=== PATIENT | male | born 1965 | race African-American/Black ===

== ENCOUNTER 2017-06-23 12:29 | Inpatient (IN) | payer BC, OTHER ==
[~2017-06-23] VITALS: Ht 182.9 cm; Wt 93.1 kg
[~2017-06-23 12:29] MED LIST: IBUP-238 PO; LORTA5 PO; Z.0.NO CURRENT MEDS
[2017-06-23] MEDS ORDERED: FURO1TAB61 PO (12:59)
[2017-06-23] MEDS ORDERED: ALDA100T PO (12:59)
[2017-06-23] MEDS ORDERED: ASPI-516 CHEW (12:59)
[2017-06-23] MEDS ORDERED: NIFE1TAB86 PO (12:59)
[2017-06-23 13:00] VITALS: BP 145/106; PULSE 111; RESP 16; TEMP 98.5; O2SAT 97
--- NOTE | 2017-06-23 13:13 | PD ---
HPI Chief Complaint: dizziness Time Seen by Provider: 13:06 Travel History International Travel<30 days: No Contact w/Intl Traveler<30days: No Traveled to known affect area: No History of Present Illness HPI 51yo M with PMH of CHF here with c/o dizziness for the last few days. Pt was seen by his physician 6 days ago and had aldactone 100mg BID added to his 80mg of lasix BID because he said pt had anasarca. Pt said he has been urinating a lot and has been feeling lightheaded for last few days. Today he was feeling dizzy and went to open the refrigerator but fell and hit his head. He said he remembers everything and denies any syncope or LOC. Denies any headache, chest pain, sob, n/v, abdominal pain, focal weakness or numbness. Pt said his edema has not improved and his legs are so swollen that it is difficult to walk. Said breathing has improved. PFSH Past Medical History Congestive Heart Failure: Yes Hypertension: Yes Medical other: Yes (CHRONIC KIDNEY DISEASE) Tetanus Vaccination: Unknown Influenza Vaccination: No Past Surgical History Other Surgery: Yes (HERNIA SURGERY) Social History Alcohol Use: Yes (OCCASIONAL) Tobacco Use: No Substance Use: No Allergies-Medications (Allergen,Severity, Reaction): Coded Allergies: No Known Allergies (Unverified Allergy, Unknown, 06/23/17) Reported Meds & Prescriptions Reported Meds & Active Scripts Active Reported Telmisartan 80 Mg Tab 80 Mg PO DAILY Aspirin 81 Mg Chew 81 Mg CHEW DAILY Aldactone (Spironolactone) 100 Mg Tab 100 Mg PO BIDPC Lasix (Furosemide) 80 Mg Tab 80 Mg PO BID Review of Systems Except as stated in HPI: all other systems reviewed are Neg Physical Exam Narrative GENERAL: 51yo M SKIN: Focused skin assessment warm/dry. HEAD: Atraumatic. Normocephalic. EYES: Pupils equal and round. No scleral icterus. No injection or drainage. ENT: No nasal bleeding or discharge. Mucous membranes pink and moist. NECK: Trachea midline. No JVD. CARDIOVASCULAR: Regular rate and rhythm. No murmur appreciated. RESPIRATORY: No accessory muscle use. Bibasilar crackles. GASTROINTESTINAL: Abdomen soft, non-tender. No rebound tenderness or guarding. MUSCULOSKELETAL: No obvious deformities. No clubbing. No cyanosis. Marked edema bilateral lower extremity up to abdomen. NEUROLOGICAL: Awake and alert. No obvious cranial nerve deficits. Motor grossly within normal limits. Normal speech. PSYCHIATRIC: Appropriate mood and affect; insight and judgment normal. Data Data Last Documented VS Vital Signs Date Time Temp Pulse Resp B/P (MAP) Pulse Ox O2 Delivery O2 Flow Rate FiO2 06/23/17 13:00 98.5 111 16 145/106 (119) 97 Orders Orders Electrocardiogram (06/23/17 ) Complete Blood Count With Diff (06/23/17 13:06) Basic Metabolic Panel (Bmp) (06/23/17 13:06) Magnesium (Mg) (06/23/17 13:06) B-Type Natriuretic Peptide (06/23/17 13:06) Blood Glucose (06/23/17 15:37) Potassium Chloride (Kcl) (06/23/17 15:45) Admit Order (Ed Use Only) (06/23/17 15:56) Labs Laboratory Tests Test 06/23/17 13:55 White Blood Count 5.8 TH/MM3 Red Blood Count 4.13 MIL/MM3 Hemoglobin 13.0 GM/DL Hematocrit 38.9 % Mean Corpuscular Volume 94.1 FL Mean Corpuscular Hemoglobin 31.4 PG Mean Corpuscular Hemoglobin Concent 33.4 % Red Cell Distribution Width 17.6 % Platelet Count 243 TH/MM3 Mean Platelet Volume 8.6 FL Neutrophils (%) (Auto) 72.2 % Lymphocytes (%) (Auto) 12.7 % Monocytes (%) (Auto) 11.8 % Eosinophils (%) (Auto) 2.3 % Basophils (%) (Auto) 1.0 % Neutrophils # (Auto) 4.2 TH/MM3 Lymphocytes # (Auto) 0.7 TH/MM3 Monocytes # (Auto) 0.7 TH/MM3 Eosinophils # (Auto) 0.1 TH/MM3 Basophils # (Auto) 0.1 TH/MM3 CBC Comment DIFF FINAL Differential Comment Blood Urea Nitrogen 27 MG/DL Creatinine 2.03 MG/DL Random Glucose 66 MG/DL Calcium Level 8.2 MG/DL Magnesium Level 1.7 MG/DL Sodium Level 143 MEQ/L Potassium Level 3.3 MEQ/L Chloride Level 107 MEQ/L Carbon Dioxide Level 23.4 MEQ/L Anion Gap 13 MEQ/L Estimat Glomerular Filtration Rate 42 ML/MIN Total Bilirubin 1.2 MG/DL Direct Bilirubin 0.6 MG/DL Indirect Bilirubin 0.6 MG/DL Aspartate Amino Transf (AST/SGOT) 28 U/L Alanine Aminotransferase (ALT/SGPT) 23 U/L Alkaline Phosphatase 144 U/L B-Type Natriuretic Peptide 2160 PG/ML Total Protein 7.5 GM/DL Albumin 2.6 GM/DL Thyroid Stimulating Hormone 3rd Gen 3.860 uIU/ML MDM Medical Decision Making Medical Screen Exam Complete: Yes Emergency Medical Condition: Yes Interpretation(s) EKG: Sinus tachycardia at 104bpm. Normal axis. TWI V5, V6. Labs reviewed, no leukocytosis. H/H 13.0/38.9. K 3.3, replaced orally. BUN/creatinine elevated at 27/2.03, no prior to compare. Glucose 66. Will recheck blood glucose. Differential Diagnosis hypoglycemia vs. dehydration vs. electrolyte abnormality vs. fluid overload Narrative Course 51yo M with anasarca recently place on aldactone in addition to his lasix by Dr. Cline from [facility]. Said his edema is getting worst and his legs are so tense that he has trouble walking. Pt felt dizzy and fell today. Glucose was low in the 50s when EVAC arrived and was given oral glucose. Repeat glucose here is still 54. Pt given juice. Pt has normal mental status and no focal neurologic deficits. He does have tense edema in bilateral lower extremities. Pt said he is no longer dizzy but lives by himself and has difficulty walking because of how swollen his legs are. Repeat glucose is still low so given food. Discussed with Dr. Garsia who accepted him to his service. Diagnosis Primary Impression: Anasarca Admitting Information Admitting Physician Requests: Dorothy Bartholomew DO Jun 23, 2017 13:13
[2017-06-23 14:06] LABS: AUTOMATED NEUTROPHIL # 4.2 TH/MM3 (1.8-7.7); BASOPHIL # 0.1 TH/MM3 (0-0.2); EOSINOPHIL # 0.1 TH/MM3 (0-0.4); EOSINOPHIL % 2.3 % (0.0-4.0); HEMATOCRIT 38.9 % (39.0-51.0); LYMPH % 12.7 % (9.0-44.0); LYMPHOCYTE # 0.7 TH/MM3 (1.0-4.8); MEAN CELL VOLUME 94.1 FL (80.0-100.0); MEAN CORPUSCULAR HEMOGLOBIN 31.4 PG (27.0-34.0); MEAN CORPUSCULAR HGB CONC 33.4 % (32.0-36.0); MEAN PLATELET VOLUME 8.6 FL (7.0-11.0); MONO % 11.8 % (0.0-8.0); MONOCYTE # 0.7 TH/MM3 (0-0.9); NEUT % 72.2 % (16.0-70.0); PLATELET COUNT 243 TH/MM3 (150-450); RED BLOOD COUNT 4.13 MIL/MM3 (4.50-5.90); RED CELL DISTRIBUTION WIDTH 17.6 % (11.6-17.2); WHITE BLOOD COUNT 5.8 TH/MM3 (4.0-11.0)
[2017-06-23 14:27] LABS: BICARBONATE 23.4 MEQ/L (21.0-32.0); CALCIUM 8.2 MG/DL (8.5-10.1); CREATININE 2.03 MG/DL (0.60-1.30); MAGNESIUM 1.7 MG/DL (1.5-2.5)
[2017-06-23] MEDS ORDERED: POTASSIUM CHLORIDE 20 MEQ CONTROLLED RELEASE TAB PO ONE ×2 (15:45→16:45)
[2017-06-23] MEDS ORDERED: TELM1TAB2 PO (16:35)
--- NOTE | 2017-06-23 16:51 | HHI.HP ---
HPI Service CP Hospitalists Primary Care Physician Bart Admission Diagnosis CHF Chief Complaint: SWELLING Travel History International Travel<30 Days: No Contact w/Intl Traveler <30 Da: No Traveled to Known Affected Are: No History of Present Illness Patient is 51 yo with no pmh who presents to his pcp in February with sudden abdomen and lower ext swelling. Pt says he was around 280pounds...lost weight to around 230 intentionally...then suddenly became swollen and gained weight back up to 280pounds. Over past 4-5 months has seen his pcp, cardiology, and urgent care. His diuretics have been titrated up, on arb, but cardiac echo and liver u/s were pending. His outpt records indicate that his cr was around 3 in February and most recent around 2. He is not getting any better and presents here. Pt says he was taking some otc supplements during his weight loss period. Denies any cp or palpitation. 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 No needle sticks. Review of Systems Other ABDOMEN AND LEG SWELLING SINCE FEBRUARY. Past Family Social History Past Medical History leg/abdomen swelling since February hernia surgery as a child sinus tach Reported Medications Reported Meds & Active Scripts Active Reported Telmisartan 80 Mg Tab 80 Mg PO DAILY Aspirin 81 Mg Chew 81 Mg CHEW DAILY Aldactone (Spironolactone) 100 Mg Tab 100 Mg PO BIDPC Lasix (Furosemide) 80 Mg Tab 80 Mg PO BID Allergies: Coded Allergies: No Known Allergies (Unverified Adverse Reaction, Unknown, 06/23/17) Family History nc Social History 4 beers 3x week. 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 bs. nt. flank dullness percussion. ext anasarca lower ext/thighs/hips/abdomen sparing the arms jvd bilaterally. superficial erosion left lower and right lower ext without drainage or cellulitis. scrotal edema Vital Signs Date Time Temp Pulse Resp B/P (MAP) Pulse Ox O2 Delivery O2 Flow Rate FiO2 06/23/17 13:00 98.5 111 16 145/106 (119) 97 Laboratory Laboratory Tests Test 06/23/17 13:55 White Blood Count 5.8 Red Blood Count 4.13 Hemoglobin 13.0 Hematocrit 38.9 Mean Corpuscular Volume 94.1 Mean Corpuscular Hemoglobin 31.4 Mean Corpuscular Hemoglobin Concent 33.4 Red Cell Distribution Width 17.6 Platelet Count 243 Mean Platelet Volume 8.6 Neutrophils (%) (Auto) 72.2 Lymphocytes (%) (Auto) 12.7 Monocytes (%) (Auto) 11.8 Eosinophils (%) (Auto) 2.3 Basophils (%) (Auto) 1.0 Neutrophils # (Auto) 4.2 Lymphocytes # (Auto) 0.7 Monocytes # (Auto) 0.7 Eosinophils # (Auto) 0.1 Basophils # (Auto) 0.1 CBC Comment DIFF FINAL Differential Comment Blood Urea Nitrogen 27 Creatinine 2.03 Random Glucose 66 Calcium Level 8.2 Magnesium Level 1.7 Sodium Level 143 Potassium Level 3.3 Chloride Level 107 Carbon Dioxide Level 23.4 Anion Gap 13 Estimat Glomerular Filtration Rate 42 Result Diagram: 06/23/17 1355 06/23/17 1355 Caprini VTE Risk Assessment Caprini VTE Risk Assessment: Mod/High Risk (score >= 2) Caprini Risk Assessment Model Point Value = 1 Point Value = 2 Point Value = 3 Point Value = 5 Age 41-60 Minor surgery BMI > 25 kg/m2 Swollen legs Varicose veins or History of unexplained or recurrent spontaneous Oral contraceptives or hormone replacement Sepsis (< 1 month) Serious lung disease, including pneumonia (< 1 month) Abnormal pulmonary function Acute myocardial infarction Congestive heart failure (< 1 month) History of inflammatory bowel disease Medical patient at bed rest Age 61-74 Arthroscopic surgery Major open surgery (> 45 min) Laparoscopic surgery (> 45 min) Malignancy Confined to bed (> 72 hours) Immobilizing plaster cast Central venous access Age >= 75 History of VTE Family history of VTE Factor V Leiden Prothrombin [id number] Lupus anticoagulant Anticardiolipin antibodies Elevated serum homocysteine Heparin-induced thrombocytopenia Other congenital or acquired thrombophilia Stroke (< 1 month) Elective arthroplasty Hip, pelvis, or leg fracture Acute spinal cord injury (< 1 month) Prophylaxis Regimen Total Risk Factor Score Risk Level Prophylaxis Regimen 0-1 Low Early ambulation 2 Moderate Order ONE of the following: *Sequential Compression Device (SCD) *Heparin 5000 units SQ BID 3-4 Higher Order ONE of the following medications: *Heparin 5000 units SQ TID *Enoxaparin/Lovenox 40 mg SQ daily (WT < 150 kg, CrCl > 30 mL/min) *Enoxaparin/Lovenox 30 mg SQ daily (WT < 150 kg, CrCl > 10-29 mL/min) *Enoxaparin/Lovenox 30 mg SQ BID (WT < 150 kg, CrCl > 30 mL/min) AND/OR *Sequential Compression Device (SCD) 5 or more Highest Order ONE of the following medications: *Heparin 5000 units SQ TID (Preferred with Epidurals) *Enoxaparin/Lovenox 40 mg SQ daily (WT < 150 kg, CrCl > 30 mL/min) *Enoxaparin/Lovenox 30 mg SQ daily (WT < 150 kg, CrCl > 10-29 mL/min) *Enoxaparin/Lovenox 30 mg SQ BID (WT < 150 kg, CrCl > 30 mL/min) AND *Sequential Compression Device (SCD) Assessment and Plan Problem List: (1) Anasarca ICD Codes: R60.1 - Generalized edema Status: Acute Plan: 1. Patient is 51 yo with no pmh who presents to his pcp in February with sudden abdomen and lower ext swelling. Pt says he was around 280pounds...lost weight to around 230 intentionally...then suddenly became swollen and gained weight back up to 280pounds. Over past 4-5 months has seen his pcp, cardiology, and urgent care. His diuretics have been titrated up, on arb, but cardiac echo and liver u/ s were pending. His outpt records indicate that his cr was around 3 in February and most recent around 2. He is not getting any better and presents here. anasarca. possibilities could include paul/nephrotic syndrome, liver cirrhosis, or new onset chf. pt also noted to be hypoglycemic on admission. sinus tach hx 1. 2d echo, telemetry 2. cont aldactone. add iv bumex and iv albumen 3. renal and liver u/s 4. check LFT, TSH, u/a, urine prot/cr ratio.....if concern for cirrhosis after initial w/up then will add additional studies. 5. weigh now and daily 6. fluid restrict 7. PT consult 8 dvt prophylaxis. Physician Certification 2 Midnight Certification Type: Admission for Inpatient Services Order for Inpatient Services 3The services are ordered in accordance with Medicare regulations or non- Medicare payer requirements, as applicable. In the case of services not specified as inpatient-only, they are appropriately provided as inpatient services in accordance with the 2-midnight benchmark. Estimated LOS (days): 3 3 days is the estimated time the patient will need to remain in the hospital, assuming treatment plan goals are met and no additional complications. Post-Hospital Plan: Home Danilo Garsia MD Jun 23, 2017 16:51
[2017-06-23 16:52] LABS: ALBUMIN 2.6 GM/DL (3.4-5.0); DIRECT BILIRUBIN ADULT 0.6 MG/DL (0.0-0.2)
[2017-06-23 16:54] LABS: INDIRECT BILIRUBIN 0.6 MG/DL (0.0-0.8); TOTAL BILIRUBIN ADULT 1.2 MG/DL (0.2-1.0); TOTAL PROTEIN 7.5 GM/DL (6.4-8.2)
[2017-06-23 17:24] VITALS: BP 146/97; PULSE 103; RESP 16; O2SAT 96
[2017-06-23 17:41] LABS: BILIRUBIN, URINE NEG (NEG); BLOOD, URINE NEG (NEG); GLUCOSE,URINE NEG (NEG); HYALINE CAST, URINE 1 /lpf (RARE); KETONE, URINE NEG (NEG); NITRITE,URINE NEG (NEG); PH, URINE 5.5 (5.0-8.5); SQUAMOUS EPITHELIAL CELL URINE <1 /hpf (0-5); URINE COLOR LIGHT-YELLOW (YELLW/STRAW); URINE LEUKOCYTE ESTERASE TRACE (NEG)
--- NOTE | 2017-06-23 17:46 | RADRPT ---
EXAM DATE/TIME: 06/23/2017 16:54 [facility] COMPARISON: No previous studies available for comparison. INDICATIONS : Edema. MEDICAL HISTORY : Chronic kidney disease. CHF. HTN. SURGICAL HISTORY : Hernia surgery. ENCOUNTER: Initial ACUITY: 1 day PAIN SCORE: 5/10 LOCATION: Bilateral upper quadrant MEASUREMENTS: LIVER: 17.6 cm length COMMON DUCT: 4 mm RIGHT KIDNEY: 9.2 x 4.3 x 4.3 cm SPLEEN: 9.4 x 3.8 cm length FINDINGS: LIVER: Small somewhat echogenic without focal lesion or ductal dilatation. Moderate ascites COMMON DUCT: No intraluminal mass or stone visualized. GALLBLADDER: Contains no stones, demonstrates no wall thickening or pericholecystic fluid. PANCREAS: Not visualized RIGHT KIDNEY: No hydronephrosis, stone or mass. SPLEEN: No focal lesion. CONCLUSION: Moderate ascites. Liver small and echogenic Pancreas not visualized Jose L Valdez MD FACR on June 23, 2017 at 17:43 Board Certified Radiologist. This report was verified electronically.
--- NOTE | 2017-06-23 17:59 | RADRPT ---
EXAM DATE/TIME: 06/23/2017 17:11 [facility] COMPARISON: No previous studies available for comparison. INDICATIONS : Increased BUN/Creatnine. MEDICAL HISTORY : Chronic kidney disease. CHF. HTN. SURGICAL HISTORY : Hernia surgery. ENCOUNTER: Initial ACUITY: 1 day PAIN SCORE: 5/10 LOCATION: Right flank MEASUREMENTS: RIGHT KIDNEY: 9.2 x 4.3 x 4.3 cm LEFT KIDNEY: 8.5 x 4.2 x 4.2 cm FINDINGS: RIGHT KIDNEY: The kidney is small and echogenic. No hydronephrosis or mass. LEFT KIDNEY: The kidney is small and echogenic. No hydronephrosis or mass. BLADDER: Within normal limits given the degree of distension. Ascitic fluid noted. CONCLUSION: 1. Sonographic findings suggesting underlying medical renal disease. No obstruction. 2. Ascites. Bert Franklin Jr., MD on June 23, 2017 at 17:55 Board Certified Radiologist. This report was verified electronically.
[2017-06-23] MEDS ORDERED: DEXTROSE 50% IN WATER 50 ML SYRINGE ONE (18:08)
[2017-06-23] MEDS: ALBUMIN 25% INJ 100 ML IV SCH (18:18)
[2017-06-23] MEDS: SPIRONOLACTONE 100 MG TAB PO SCH (18:18)
[2017-06-23 18:19] VITALS: BP 136/92; PULSE 103; RESP 14; O2SAT 96
[2017-06-23] MEDS ORDERED: DEXTROSE 50% IN WATER 50 ML SYRINGE IV ONE (18:45)
[2017-06-23 20:00] VITALS: BP 135/98; PULSE 101; RESP 20; TEMP 98.1; O2SAT 97
[2017-06-23] MEDS: FUROSEMIDE 40 MG/4 ML VIAL IV PUSH SCH (21:05)
[2017-06-24] VITALS: BP 111/77; PULSE 99; RESP 18; TEMP 97.5; O2SAT 97
[2017-06-24 04:00] VITALS: BP 135/90; PULSE 101; RESP 18; TEMP 98.1; O2SAT 98
[2017-06-24 07:49] LABS: AUTOMATED NEUTROPHIL # 5.7 TH/MM3 (1.8-7.7); BASOPHIL # 0.1 TH/MM3 (0-0.2); BASOPHIL % 0.7 % (0.0-2.0); EOSINOPHIL # 0.4 TH/MM3 (0-0.4); EOSINOPHIL % 4.6 % (0.0-4.0); HEMATOCRIT 36.4 % (39.0-51.0); HEMOGLOBIN 12.2 GM/DL (13.0-17.0); LYMPHOCYTE # 0.9 TH/MM3 (1.0-4.8); MEAN CELL VOLUME 94.9 FL (80.0-100.0); MEAN CORPUSCULAR HGB CONC 33.7 % (32.0-36.0); MEAN PLATELET VOLUME 8.1 FL (7.0-11.0); MONO % 13.4 % (0.0-8.0); MONOCYTE # 1.1 TH/MM3 (0-0.9); NEUT % 70.3 % (16.0-70.0); PLATELET COUNT 227 TH/MM3 (150-450); RED BLOOD COUNT 3.83 MIL/MM3 (4.50-5.90); RED CELL DISTRIBUTION WIDTH 17.3 % (11.6-17.2); WHITE BLOOD COUNT 8.2 TH/MM3 (4.0-11.0)
[2017-06-24 08:00] VITALS: BP 134/91; PULSE 98; RESP 18; TEMP 98.2; O2SAT 100
[2017-06-24 08:01] LABS: INTERNATIONAL NORMALIZED RATIO 1.3 RATIO; PROTHROMBIN TIME - PATIENT 13.3 SEC (9.8-11.6)
[2017-06-24 08:14] LABS: BICARBONATE 24.9 MEQ/L (21.0-32.0); CALCIUM 8.1 MG/DL (8.5-10.1); CREATININE 1.89 MG/DL (0.60-1.30)
[2017-06-24] MEDS: POTASSIUM CHLORIDE 20 MEQ CONTROLLED RELEASE TAB PO SCH ×5 (09:54→22:35)
[2017-06-24] MEDS: LOSARTAN 50 MG TAB PO SCH (09:55)
[2017-06-24] MEDS: ASPIRIN 81 MG CHEW TAB CHEW SCH (09:56)
[2017-06-24] MEDS: HEPARIN SODIUM - SQ 10,000 UNITS/ML VIAL SQ SCH ×2 (09:56→21:00)
[2017-06-24] MEDS: SPIRONOLACTONE 100 MG TAB PO SCH ×2 (10:15→17:51)
[2017-06-24] MEDS: ALBUMIN 25% INJ 100 ML IV SCH ×2 (10:15→18:23)
--- NOTE | 2017-06-24 10:54 | HHI.PR ---
Subjective Remarks breathing ok feels little less swollen Objective Vitals heart reg lung cta abd ascites/nt/bs ext anasarca from feet to thighs millan. yellow urine Vital Signs Date Time Temp Pulse Resp B/P (MAP) Pulse Ox O2 Delivery O2 Flow Rate FiO2 06/24/17 08:00 98.2 98 18 134/91 (105) 100 06/24/17 04:00 98.1 101 18 135/90 (105) 98 06/24/17 00:00 97.5 99 18 111/77 (88) 97 06/23/17 20:00 98.1 101 20 135/98 (110) 97 06/23/17 19:31 06/23/17 18:19 103 14 136/92 (107) 96 Room Air 06/23/17 17:24 103 16 146/97 (113) 96 Room Air 06/23/17 13:00 98.5 111 16 145/106 (119) 97 Result Diagram: 06/24/17 0713 06/24/17 0713 A/P Problem List: (1) Anasarca ICD Codes: R60.1 - Generalized edema Status: Acute Plan: 1. Patient is 51 yo with no pmh who presents to his pcp in February with sudden abdomen and lower ext swelling. Pt says he was around 280pounds...lost weight to around 230 intentionally...then suddenly became swollen and gained weight back up to 280pounds. Over past 4-5 months has seen his pcp, cardiology, and urgent care. His diuretics have been titrated up, on arb, but cardiac echo and liver u/ s were pending. His outpt records indicate that his cr was around 3 in February and most recent around 2. He is not getting any better and presents here. anasarca. possibilities could include paul/nephrotic syndrome, liver cirrhosis, or new onset chf. ..liver u/s 06/23 small echogenic liver no mass ..renal u/s 06/23.no obstruction ..3L diuresis overnight. pt also noted to be hypoglycemic on admission. sinus tach hx ckd 3 1. 2d echo, telemetry 2. cont aldactone. add iv lasix and iv albumen. replace k aggresssively and recheck today 3. add on hepatitis panel 5. weigh now and daily 6. fluid restrict 7. PT consult 8 dvt prophylaxis. Sun,Danilo L MD Jun 24, 2017 10:54
[2017-06-24 12:00] VITALS: BP 138/102; PULSE 115; RESP 18; TEMP 98.6; O2SAT 100
[2017-06-24] MEDS: FUROSEMIDE 40 MG/4 ML VIAL IV PUSH SCH ×2 (14:24→18:22)
[2017-06-24 16:00] VITALS: BP 134/86; PULSE 70; RESP 18; TEMP 98.3; O2SAT 99
--- NOTE | 2017-06-24 19:09 | EKG ---
Date Performed: 06/23/2017 Time Performed: 14:29:01 PTAGE: 51 years EKG: SINUS TACHYCARDIA WITH OCCASIONAL SUPRAVENTRICULAR PREMATURE COMPLEXES NONSPECIFIC T-WAVE A BNORMALITY ABNORMAL RHYTHM ECG NO PREVIOUS TRACING DOCTOR: Clemente Rainey Interpretating Date/Time 06/24/2017 19:07:35
[2017-06-24 20:30] VITALS: BP 128/90; PULSE 114; RESP 17; TEMP 98.8; O2SAT 98
[2017-06-25] VITALS (10 sets, daily range): BP systolic 111–130; BP diastolic 70–88; PULSE 100–113; RESP 17–19; TEMP 97.8–98.7; O2SAT 97–100
[2017-06-25] MEDS ORDERED: ACETAMINOPHEN 325 MG TAB PO PRN (02:15)
[2017-06-25 10:12] LABS: CALCIUM 8.5 MG/DL (8.5-10.1); CREATININE 1.97 MG/DL (0.60-1.30); MAGNESIUM 1.6 MG/DL (1.5-2.5)
[2017-06-25] MEDS: SPIRONOLACTONE 100 MG TAB PO SCH ×2 (10:32→17:31)
[2017-06-25] MEDS: FUROSEMIDE 40 MG/4 ML VIAL IV PUSH SCH ×2 (10:32→17:31)
[2017-06-25] MEDS: POTASSIUM CHLORIDE 20 MEQ CONTROLLED RELEASE TAB PO SCH (10:32)
[2017-06-25] MEDS: ASPIRIN 81 MG CHEW TAB CHEW SCH (10:32)
[2017-06-25] MEDS: LOSARTAN 50 MG TAB PO SCH (10:33)
[2017-06-25] MEDS: HEPARIN SODIUM - SQ 10,000 UNITS/ML VIAL SQ SCH ×2 (10:33→20:03)
[2017-06-25] MEDS: ALBUMIN 25% INJ 100 ML IV SCH ×2 (10:36→17:31)
--- NOTE | 2017-06-25 12:03 | HHI.PR ---
Subjective Remarks feels swelling in coming down c/o left foot/ankle pain since prior to admission. Objective Vitals heart reg lung cta abd softer. bs. nt/ascites ext lower ext pitting edema improving millan. yellow urine Vital Signs Date Time Temp Pulse Resp B/P (MAP) Pulse Ox O2 Delivery O2 Flow Rate FiO2 06/25/17 08:00 98.4 112 18 111/70 (84) 98 06/25/17 04:00 113 06/25/17 04:00 98.0 100 19 120/80 (93) 98 06/25/17 00:20 98.0 110 18 123/88 (100) 97 06/24/17 20:30 98.8 114 17 128/90 (103) 98 06/24/17 16:00 98.3 70 18 134/86 (102) 99 06/24/17 12:00 98.6 115 18 138/102 (114) 100 Result Diagram: 06/24/17 0713 06/25/17 0855 A/P Problem List: (1) Anasarca ICD Codes: R60.1 - Generalized edema Status: Acute Plan: 1. Patient is 51 yo with no pmh who presents to his pcp in February with sudden abdomen and lower ext swelling. Pt says he was around 280pounds...lost weight to around 230 intentionally...then suddenly became swollen and gained weight back up to 280pounds. Over past 4-5 months has seen his pcp, cardiology, and urgent care. His diuretics have been titrated up, on arb, but cardiac echo and liver u/ s were pending. His outpt records indicate that his cr was around 3 in February and most recent around 2. He is not getting any better and presents here. anasarca. possibilities could include paul/nephrotic syndrome(spot prot/cr ratio not nephrotic range), liver cirrhosis, or new onset chf. ..liver u/s 06/23 small echogenic liver no mass. ascites noted ..renal u/s 06/23.no obstruction. medical renal dz ..continues to diurese well pt also noted to be hypoglycemic on admission. sinus tach hx ckd 3 1. 2d echo pending, telemetry 2. cont aldactone. iv lasix and iv albumen. replace k aggresssively 3. weigh daily. fluid restrict 4. u/s paracentesis with analysis. check SAAG. 5. consult renal for renal failure 6. xray left foot 7 PT consult 8 dvt prophylaxis. Danilo Garsia MD Jun 25, 2017 12:03
--- NOTE | 2017-06-25 12:46 | RADRPT ---
EXAM DATE/TIME: 06/25/2017 12:02 [facility] COMPARISON: No previous studies available for comparison. INDICATIONS : Pain in left foot; 1-5 head of metatarsals. MEDICAL HISTORY : None. SURGICAL HISTORY : None. ENCOUNTER: Initial ACUITY: 2 weeks PAIN SCORE: 7/10 LOCATION: Left Foot. FINDINGS: No fracture is seen. There is some hypertrophic change at the medial first metatarsal head. There is cystic change at the medial aspect of the first interphalangeal joint. There some hypertrophic change between an os naviculare. and the posterior medial aspect of the navicular bone. There are calcaneal spurs at the Achilles and plantar aponeurosis attachment sites. There is soft tissue swelling is see n at the dorsum of the foot. CONCLUSION: Chronic bony changes as described above. Jeremy Fry MD on June 25, 2017 at 12:40 Board Certified Radiologist. This report was verified electronically.
--- NOTE | 2017-06-25 15:21 | PD.CONS ---
HPI Service Nephrology Consult Requested By Dr. Martínez Reason for Consult Acute renal failure Primary Care Physician Janneth Ruiz MD History of Present Illness Patient is a 51-year-old -[place] male with history of alcohol use, he has been swelling up since February increasing edema of the legs and abdominal cavity, he came in now with these complaints and I was consulted to rule out nephrotic syndrome has urinalysis though do not show massive protein loss, protein to creatinine ratio is 1. His creatinine has elevated 1.8-2 range. He has no knowledge of kidney dysfunction in the past. Review of Systems Constitutional: COMPLAINS OF: Fatigue Respiratory: COMPLAINS OF: Shortness of breath Cardiovascular: COMPLAINS OF: Lower Extremity Edema Gastrointestinal: COMPLAINS OF: Abdominal pain Neurologic: COMPLAINS OF: Abnormal gait Psychiatric: COMPLAINS OF: Anxiety Past Family Social History Allergies: Coded Allergies: No Known Allergies (Unverified Allergy, Unknown, 06/23/17) Past Medical History Hypertension Peripheral edema Past Surgical History Hernia repair Reported Medications Reported Meds & Active Scripts Active Reported Telmisartan 80 Mg Tab 80 Mg PO DAILY Aspirin 81 Mg Chew 81 Mg CHEW DAILY Aldactone (Spironolactone) 100 Mg Tab 100 Mg PO BIDPC Lasix (Furosemide) 80 Mg Tab 80 Mg PO BID Active Ordered Medications Current Medications Medications (Trade) Dose Ordered Sig/Everardo Route Start Time Stop Time Status Last Admin (Aspirin Chew) 81 mg DAILY CHEW 06/24/17 09:00 06/25/17 10:32 (Aldactone) 100 mg BIDPC PO 06/23/17 18:00 06/25/17 10:32 Albumin Human 100 ml @ 60 mls/hr BID@0900,1800 IV 06/23/17 18:00 06/25/17 10:36 (Lasix Inj) 40 mg BID@09,18 IV PUSH 06/23/17 18:00 06/25/17 10:32 (Cozaar) 100 mg DAILY PO 06/24/17 09:00 06/25/17 10:33 (Heparin Inj) 5,000 units Q12HR SQ 06/24/17 09:00 06/25/17 10:33 (KCl) 20 meq Q12HR PO 06/26/17 09:00 (Roxicodone) 5 mg Q4H PRN PO 06/25/17 12:15 06/25/17 12:42 Family History Noncontributory Social History He used to smoke in the past, he used to drink heavier but not doing 6 a Week Physical Exam Vital Signs Vital Signs Date Time Temp Pulse Resp B/P (MAP) Pulse Ox O2 Delivery O2 Flow Rate FiO2 06/25/17 12:07 111 06/25/17 12:00 98.7 107 18 130/82 (98) 100 06/25/17 08:05 109 06/25/17 08:00 98.4 112 18 111/70 (84) 98 06/25/17 04:00 113 06/25/17 04:00 98.0 100 19 120/80 (93) 98 06/25/17 00:20 98.0 110 18 123/88 (100) 97 06/24/17 20:30 98.8 114 17 128/90 (103) 98 06/24/17 16:00 98.3 70 18 134/86 (102) 99 Physical Exam GENERAL: Well-nourished, well-developed patient. SKIN: Warm and dry. HEAD: Normocephalic. EYES: No scleral icterus. No injection or drainage. NECK: Supple, trachea midline. No JVD or lymphadenopathy. CARDIOVASCULAR: Regular rate and rhythm without murmurs, gallops, or rubs. RESPIRATORY: Breath sounds equal bilaterally. No accessory muscle use. GASTROINTESTINAL: Abdomen soft, non-tender, distended with ascites. EXTREMITIES: No cyanosis, 2+ edema. NEUROLOGICAL: Awake, alert, and oriented x 3. Non-focal. Laboratory Laboratory Tests Test 06/24/17 16:21 06/25/17 08:55 Potassium Level 3.7 4.7 Blood Urea Nitrogen 23 Creatinine 1.97 Random Glucose 87 Calcium Level 8.5 Magnesium Level 1.6 Sodium Level 140 Chloride Level 105 Carbon Dioxide Level 26.0 Anion Gap 9 Estimat Glomerular Filtration Rate 44 Hepatitis A IgM Antibody NONREACTIVE Hepatitis B Surface Antigen NONREACTIVE Hepatitis B Core IgM Antibody NONREACTIVE Hepatitis C IgG Antibody NONREACTIVE Result Diagram: 06/24/17 0713 06/25/17 0855 Imaging Last Impressions Renal Ultrasound 06/23/17 0000 Signed Impressions: Service Date/Time: Friday, June 23, 2017 17:11 - CONCLUSION: 1. Sonographic findings suggesting underlying medical renal disease. No obstruction. 2. Ascites. Bert Franklin Jr., MD Liver Ultrasound 06/23/17 0000 Signed Impressions: Service Date/Time: Friday, June 23, 2017 16:54 - CONCLUSION: Moderate ascites. Liver small and echogenic Pancreas not visualized JoseL Valdez MD FACR Assessment and Plan Problem List: (1) Acute renal failure ICD Codes: N17.9 - Acute kidney failure, unspecified Plan: Patient has underlying cirrhosis of the liver there is no evidence of nephrotic syndrome Mild proteinuria can be seen due to other medical issues Agree with diuretics Paracentesis Monitor intake and output High risk for hepatorenal syndrome check urine sodium Follow BMP (2) Cirrhosis of liver ICD Codes: K74.60 - Unspecified cirrhosis of liver Plan: Liver ultrasound confirms small echogenic liver consistent with cirrhosis (3) Anasarca ICD Codes: R60.1 - Generalized edema Status: Acute Plan: Due to cirrhosis of the liver Andrzej Mojica MD Jun 25, 2017 15:21
[2017-06-26] VITALS: PULSE 103
[2017-06-26 00:40] VITALS: BP 121/81; PULSE 101; RESP 18; TEMP 97.8; O2SAT 99
[2017-06-26 06:00] VITALS: BP 118/90; PULSE 110; RESP 19; TEMP 98; O2SAT 99
[2017-06-26 07:16] LABS: INTERNATIONAL NORMALIZED RATIO 1.3 RATIO; PROTHROMBIN TIME - PATIENT 12.7 SEC (9.8-11.6)
[2017-06-26 07:24] LABS: AUTOMATED NEUTROPHIL # 4.5 TH/MM3 (1.8-7.7); BASOPHIL # 0.1 TH/MM3 (0-0.2); EOSINOPHIL # 0.5 TH/MM3 (0-0.4); EOSINOPHIL % 6.5 % (0.0-4.0); HEMATOCRIT 34.4 % (39.0-51.0); HEMOGLOBIN 11.4 GM/DL (13.0-17.0); LYMPH % 17.9 % (9.0-44.0); LYMPHOCYTE # 1.3 TH/MM3 (1.0-4.8); MEAN CELL VOLUME 94.9 FL (80.0-100.0); MEAN CORPUSCULAR HEMOGLOBIN 31.6 PG (27.0-34.0); MEAN CORPUSCULAR HGB CONC 33.3 % (32.0-36.0); MEAN PLATELET VOLUME 8.5 FL (7.0-11.0); MONO % 11.6 % (0.0-8.0); MONOCYTE # 0.8 TH/MM3 (0-0.9); PLATELET COUNT 214 TH/MM3 (150-450); RED BLOOD COUNT 3.63 MIL/MM3 (4.50-5.90); RED CELL DISTRIBUTION WIDTH 16.8 % (11.6-17.2); WHITE BLOOD COUNT 7.1 TH/MM3 (4.0-11.0)
[2017-06-26 07:25] LABS: CREATININE, RANDOM URINE 29.4 MG/DL
[2017-06-26 07:28] LABS: ALBUMIN 2.7 GM/DL (3.4-5.0); BICARBONATE 29.8 MEQ/L (21.0-32.0); CALCIUM 8.3 MG/DL (8.5-10.1); CREATININE 1.87 MG/DL (0.60-1.30); DIRECT BILIRUBIN ADULT 0.8 MG/DL (0.0-0.2); MAGNESIUM 1.6 MG/DL (1.5-2.5)
[2017-06-26 07:31] LABS: INDIRECT BILIRUBIN 1.2 MG/DL (0.0-0.8); TOTAL PROTEIN 6.7 GM/DL (6.4-8.2)
[2017-06-26] MEDS: HEPARIN SODIUM - SQ 10,000 UNITS/ML VIAL SQ SCH ×2 (08:11→21:00)
[2017-06-26] MEDS: ASPIRIN 81 MG CHEW TAB CHEW SCH (08:12)
[2017-06-26 08:13] VITALS: BP 124/80; PULSE 103; RESP 20; TEMP 98.5; O2SAT 94
[2017-06-26] MEDS: ALBUMIN 25% INJ 100 ML IV SCH ×2 (08:14→17:34)
[2017-06-26] MEDS: SPIRONOLACTONE 100 MG TAB PO SCH ×2 (09:38→18:32)
[2017-06-26] MEDS: POTASSIUM CHLORIDE 20 MEQ CONTROLLED RELEASE TAB PO SCH ×2 (09:39→22:55)
[2017-06-26] MEDS: LOSARTAN 50 MG TAB PO SCH (09:39)
[2017-06-26] MEDS: FUROSEMIDE 40 MG/4 ML VIAL IV PUSH SCH (09:39)
--- NOTE | 2017-06-26 11:14 | PD.RAD ---
Post US Procedure Prog Note Pre Procedure Diagnosis: (1) Ascites (2) Cirrhosis of liver Post Procedure Diagnosis: (1) Ascites (2) Cirrhosis of liver Procedure Date: Jun 26, 2017 Supervising Radiologist: Victorino Blanco Proceduralist/Assist: Cayla Azul RDMS Anesthesia: Local Plan of Activity Patient to Unit: Nursing Unit Patient Condition: Good See PACS Report for procedural detail/treatment Drainage Procedure Procedure 1 Side: Right Procedure Type: Paracentesis Procedure: Removal Drainage: Suction Fluid Description: Rigoberto Zhu Oscar F. MD Jun 26, 2017 11:14
[2017-06-26 12:00] VITALS: BP 132/83; PULSE 114; RESP 20; TEMP 98.2; O2SAT 99
--- NOTE | 2017-06-26 12:05 | RADRPT ---
EXAM DATE/TIME: 06/26/2017 08:47 [place] COMPARISON: No previous studies available for comparison. INDICATIONS : Ascites. MEDICAL HISTORY : Congestive heart failure. Hypertension. Arthritis. Dyspnea. Abdominal pain. Anxiety. Chronic kidney d isease. SURGICAL HISTORY : Hernia repair. ENCOUNTER: Initial ACUITY: 1 day PAIN SCORE: 6/10 LOCATION: Right lower quadrant FLUID: Total volume of 5500 cc of clear, yellow fluid was removed. Fluid was sent to lab for ordered studies. Post procedure scanning reveals no hematoma or other complication. TECHNIQUE: 1. Ultrasound guidance for abdominal paracentesis. 2. Paracentesis. The risks, benefits, and alternatives to ultrasound guided paracentesis were explained to the patient in detail including the risk of bleeding and infection. Written and verbal informed consent was obt ained. With the patient on the ultrasound table, ultrasound imaging was used to select the most appropriate approach for paracentesis. Overlying skin was prepped and draped in the usual sterile fashion and wi th a local anesthetic, a dermatotomy was made with an 11 blade scalpel. A 6 [place] [id number] ca theter was introduced into the peritoneal cavity and fluid was collected. The patient tolerated the procedure well and left the ultrasound suite in stable condition. CONCLUSION: Uncomplicated ultrasound guided paracentesis. Victorino Blanco MD on June 26, 2017 at 12:02 Board Certified Radiologist. This report was verified electronically.
--- NOTE | 2017-06-26 12:34 | HHI.PR ---
Subjective Remarks Less abdominal distension since paracentesis. Objective Vitals Vital Signs Date Time Temp Pulse Resp B/P (MAP) Pulse Ox O2 Delivery O2 Flow Rate FiO2 06/26/17 08:13 98.5 103 20 124/80 (95) 94 06/26/17 06:00 98.0 110 19 118/90 (99) 99 06/26/17 00:40 97.8 101 18 121/81 (94) 99 06/26/17 00:00 103 06/25/17 21:30 98.7 110 17 120/84 (96) 98 06/25/17 20:00 107 06/25/17 16:14 103 06/25/17 16:00 97.8 104 18 111/76 (88) 100 06/26/17 06/26/17 06/27/17 15:00 23:00 07:00 Output Total 800 ml Balance -800 ml Output Urine Total 800 ml Result Diagram: 06/26/17 0636 06/26/17 0636 Imaging Last Impressions Foot X-Ray 06/25/17 0000 Signed Impressions: Service Date/Time: Sunday, June 25, 2017 12:02 - CONCLUSION: Chronic bony changes as described above. Jeremy Fry MD Renal Ultrasound 06/23/17 0000 Signed Impressions: Service Date/Time: Friday, June 23, 2017 17:11 - CONCLUSION: 1. Sonographic findings suggesting underlying medical renal disease. No obstruction. 2. Ascites. Bert Franklin Jr., MD Liver Ultrasound 06/23/17 0000 Signed Impressions: Service Date/Time: Friday, June 23, 2017 16:54 - CONCLUSION: Moderate ascites. Liver small and echogenic Pancreas not visualized Jose L Valdez MD FACR Objective Remarks GENERAL: This is a well-nourished, well-developed patient, in no apparent distress. CARDIOVASCULAR: Regular rate and rhythm without murmurs, gallops, or rubs. RESPIRATORY: Clear to auscultation. Breath sounds equal bilaterally. No wheezes , rales, or rhonchi. GASTROINTESTINAL: Abdomen soft, non-tender, nondistended. Normal active bowel sounds MUSCULOSKELETAL: Extremities without clubbing, cyanosis, or edema. NEURO: Alert & Oriented x4 to person, place, time, situation. Moves all ext x4 A/P Problem List: (1) Anasarca ICD Codes: R60.1 - Generalized edema Status: Acute Plan: - comgmt with Nephrology - Patient is 51 yo with no pmh who presents to his pcp in February with sudden abdomen and lower ext swelling. Pt says he was around 280pounds...lost weight to around 230 intentionally...then suddenly became swollen and gained weight back up to 280pounds. Over past 4-5 months has seen his pcp, cardiology, and urgent care. His diuretics have been titrated up, on arb, but cardiac echo and liver u/ s were pending. His outpt records indicate that his cr was around 3 in February and most recent around 2. He is not getting any better and presents here. - Pt was hypoglycemic on admission - anasarca - possibilities could include paul/nephrotic syndrome(spot prot/cr ratio not nephrotic range), liver cirrhosis, or new onset chf. - liver u/s 06/23 small echogenic liver no mass. ascites noted - renal u/s 06/23. no obstruction. medical renal dz - paracentesis (06/23) 5,500ml of fluid removed. - ascitic studies pending - check SAAG - Pt has diuresed 8.8 Liters since admission - Pt's blood sugars are trending low normal - Pt has continued sinus tachycardia, HR 100-120 - Echocardiogram --> pending - IV lasix, IV albumin, hydralazine, potassium - repeat BMP, observe potassium level - continues to diurese well - fluid restrictions - continue PT - DVT prophylaxis - supportive care (2) CKD (chronic kidney disease) stage 3, GFR 30-59 ml/min ICD Codes: N18.3 - Chronic kidney disease, stage 3 (moderate) Status: Chronic Plan: - observe - comgmt with Nephrology Angel Gallegos DO Jun 26, 2017 12:34
[2017-06-26 12:59] LABS: TOTAL PROTEIN,PERITONEAL FLUID 4.4 GM/DL
--- NOTE | 2017-06-26 13:02 | ECHRPT ---
Indication: HEART FAILURE CONCLUSIONS Mildly dilated left ventricle. Wall thickness is measured at the upper limits of normal. The left ventricular systolic function is severely reduced with an estimated ejection fraction in th e range of 20-25%. There is diffuse global hypokinesis with distinct regional wall motion abnormalities. The left atrial size is moderately dilated. The right atrial size is mildly dilated. Moderate mitral valve regurgitation. Trace aortic valve regurgitation. There is moderate tricuspid regurgitation. The estimated pulmonary arterial pressure is 49.4 mmHg. There is less than 50% respiratory change in dimension of the inferior vena cava (abnormal). A large left sided pleural effusion is noted. BP: 134 / 91 HR: 105 Rhythm: Sinus MEASUREMENTS (Male / Female) Normal Values Technical Quality:Excellent 2D ECHO LV Diastolic Diameter PLAX 6.0 cm 4.2 - 5.9 / 3.9 - 5.3 cm LV Systolic Diameter PLAX 5.2 cm IVS Diastolic Thickness 0.9 cm 0.6 - 1.0 / 0.6 - 0.9 cm LVPW Diastolic Thickness 1.0 cm 0.6 - 1.0 / 0.6 - 0.9 cm LV Relative Wall Thickness 0.3 RV Internal Dim ED PLAX 3.0 cm LVOT Diameter 2.0 cm LA Systolic Diameter LX 4.8 cm 3.0 - 4.0 / 2.7 - 3.8 cm LV Ejection Fraction MOD 4C 35.5 % LV Cardiac Index MOD 4C 3756.3 cm/minm LV Ejection Fraction 4C AL 36.7 % LV Cardiac Index 4C AL 4036.2 cm/minm M-MODE Aortic Root Diameter MM 3.1 cm LA Systolic Diameter MM 4.8 cm LA Ao Ratio MM 1.5 AV Cusp Separation MM 2.0 cm DOPPLER AV Peak Velocity 145.0 cm/s AV Peak Gradient 8.4 mmHg AI Peak Velocity 298.0 cm/s AI Peak Gradient 35.5 mmHg AI Pressure Half Time 736.5 ms LVOT Peak Velocity 114.0 cm/s LVOT Peak Gradient 5.2 mmHg AV Area Cont Eq pk 2.5 cm MV Peak Velocity 163.0 cm/s MV Peak Gradient 10.6 mmHg MV Mean Velocity 94.6 cm/s MV Mean Gradient 4.0 mmHg MV Area PHT 5.8 cm TR Peak Velocity 314.0 cm/s TR Peak Gradient 39.4 mmHg Right Atrial Pressure 10.0 mmHg Pulmonary Artery Systolic Pressu 49.4 mmHg Right Ventricular Systolic Press 49.4 mmHg PV Peak Velocity 88.2 cm/s PV Peak Gradient 3.1 mmHg FINDINGS LEFT VENTRICLE Mildly dilated left ventricle. Wall thickness is measured at the upper limits of normal. The left ventricular systolic function is severely reduced with an estimated ejection fraction in th e range of 20-25%. There is diffuse global hypokinesis with distinct regional wall motion abnormalities. RIGHT VENTRICLE Normal right ventricular size and systolic function. LEFT ATRIUM The left atrial size is moderately dilated. RIGHT ATRIUM The right atrial size is mildly dilated. ATRIAL SEPTUM Normal atrial septal thickness without atrial level shunting by limited color doppler interrogation. AORTA The aortic root and proximal ascending aorta are normal in size on limited imaging. MITRAL VALVE Structurally normal mitral valve. Moderate mitral valve regurgitation. AORTIC VALVE Trileaflet aortic valve. Trace aortic valve regurgitation. TRICUSPID VALVE Structurally normal tricuspid valve. There is moderate tricuspid regurgitation. The estimated pulmonary arterial pressure is 49.4 mmHg. PULMONARY VALVE No pulmonary valve regurgitation or stenosis. VESSELS There is less than 50% respiratory change in dimension of the inferior vena cava (abnormal). PERICARDIUM A large left sided pleural effusion is noted. Juan Higuera MD, FACC (Electronically Signed) Final Date:26 June 2017 13:01
[2017-06-26 13:34] LABS: PERITONEAL BASO 1 %; PERITONEAL EOS 1 %; PERITONEAL HISTIOCYTES 16 %; PERITONEAL LYMPHS 67 %; PERITONEAL MESOTHELIAL 3 %; PERITONEAL MONOS 5 %; PERITONEAL POLYS(SEGS) 7 %; PERITONEAL RBC 174 /MM3 (0-0)
--- NOTE | 2017-06-26 15:07 | HHI.NPPN ---
Subjective History of Present Illness Patient is a 51-year-old male with history of edema, hypertension Interval History Ascites drained 5.5 L Objective Data Data 06/26/17 06/27/17 19:00 07:00 Output Total 800 ml Balance -800 ml Output Urine Total 800 ml Vital Signs Date Time Temp Pulse Resp B/P (MAP) Pulse Ox O2 Delivery O2 Flow Rate FiO2 06/26/17 12:00 98.2 114 20 132/83 (99) 99 06/26/17 08:13 98.5 103 20 124/80 (95) 94 06/26/17 06:00 98.0 110 19 118/90 (99) 99 06/26/17 00:40 97.8 101 18 121/81 (94) 99 06/26/17 00:00 103 06/25/17 21:30 98.7 110 17 120/84 (96) 98 06/25/17 20:00 107 06/25/17 16:14 103 06/25/17 16:00 97.8 104 18 111/76 (88) 100 -: 06/26/17 0636 06/26/17 0636 Microbiology 06/26/17 Gram Stain, Received Pending 06/26/17 Body Fluid Culture, Received Pending Physical Exam General Appearance: Well Developed, Well Nourished Neck Neck Exam: Neck Supple Pulmonary Resp Exam: Clear Bilaterally, Breath Sounds Equal Cardiology CV Exam: Tachycardia Gastrointestinal/Abdomen GI Exam: Soft, Non-Tender, Bowel Sounds Present Extremeties Extremities Exam: Trace Edema Assessment/Plan Problem List: (1) Acute renal failure ICD Codes: N17.9 - Acute kidney failure, unspecified Plan: Patient has underlying cardiomyopathy EF 25% dilated cardiomyopathy question of cirrhosis of the liver there is no evidence of nephrotic syndrome Mild proteinuria can be seen due to other medical issues Agree with diuretics Paracentesis was done 5.5 L removed Monitor intake and output Urine sodium is high likely due to diuretic Follow BMP (2) Cirrhosis of liver ICD Codes: K74.60 - Unspecified cirrhosis of liver Plan: Liver ultrasound confirms small echogenic liver consistent with cirrhosis (3) Anasarca ICD Codes: R60.1 - Generalized edema Status: Acute Plan: Due to cirrhosis of the liver Andrzje Mojica MD Jun 26, 2017 15:07
[2017-06-26] MEDS ORDERED: LIDOCAINE HCL 1% PF 30 ML VIAL ONE (15:27)
[2017-06-26 20:00] VITALS: BP 121/82; PULSE 109; RESP 20; TEMP 98.6; O2SAT 100
[2017-06-27] VITALS (9 sets, daily range): BP systolic 103–124; BP diastolic 63–74; PULSE 101–113; RESP 17–18; TEMP 98–98.4; O2SAT 98–100
[2017-06-27] MEDS: FUROSEMIDE 40 MG/4 ML VIAL IV PUSH SCH ×2 (09:00→09:41)
[2017-06-27] MEDS: LOSARTAN 50 MG TAB PO SCH (09:00)
[2017-06-27] MEDS: SPIRONOLACTONE 100 MG TAB PO SCH ×2 (09:30→17:40)
[2017-06-27] MEDS: ASPIRIN 81 MG CHEW TAB CHEW SCH (09:30)
[2017-06-27] MEDS: POTASSIUM CHLORIDE 20 MEQ CONTROLLED RELEASE TAB PO SCH ×2 (09:30→19:56)
[2017-06-27] MEDS: HEPARIN SODIUM - SQ 10,000 UNITS/ML VIAL SQ SCH ×2 (09:40→19:57)
[2017-06-27] MEDS: ALBUMIN 25% INJ 100 ML IV SCH (09:49)
--- NOTE | 2017-06-27 14:19 | HHI.NPPN ---
Subjective History of Present Illness Patient is a 51-year-old male with history of edema, hypertension Objective Data Data 06/27/17 06/28/17 19:00 07:00 Intake Total 360 ml Output Total 3000 ml Balance -2640 ml Intake Oral 360 ml Output Urine Total 3000 ml # Bowel Movements 0 Vital Signs Date Time Temp Pulse Resp B/P (MAP) Pulse Ox O2 Delivery O2 Flow Rate FiO2 06/27/17 12:36 98.3 101 17 103/67 (79) 99 06/27/17 08:21 98.2 108 18 108/74 (85) 99 06/27/17 04:00 98.0 106 18 124/71 (88) 98 06/27/17 00:00 98.4 105 18 110/63 (79) 99 06/26/17 20:00 98.6 109 20 121/82 (95) 100 -: 06/26/17 0636 06/26/17 0636 Physical Exam General Appearance: Well Developed, Well Nourished Neck Neck Exam: Neck Supple Pulmonary Resp Exam: Clear Bilaterally, Breath Sounds Equal Cardiology CV Exam: Tachycardia Gastrointestinal/Abdomen GI Exam: Soft, Non-Tender, Bowel Sounds Present Extremeties Extremities Exam: Trace Edema Assessment/Plan Problem List: (1) Acute renal failure ICD Codes: N17.9 - Acute kidney failure, unspecified Plan: Patient has underlying cardiomyopathy EF 25% dilated cardiomyopathy question of cirrhosis of the liver there is no evidence of nephrotic syndrome Mild proteinuria can be seen due to other medical issues Agree with diuretics Paracentesis was done 5.5 L removed Monitor intake and output Urine sodium is high likely due to diuretic Follow CMP discussed with family (2) Cirrhosis of liver ICD Codes: K74.60 - Unspecified cirrhosis of liver Plan: Liver ultrasound confirms small echogenic liver consistent with cirrhosis (3) Anasarca ICD Codes: R60.1 - Generalized edema Status: Acute Plan: Due to chf ? cirrhosis of the liver Andrzej Mojica MD Jun 27, 2017 14:19
--- NOTE | 2017-06-27 16:18 | HHI.PR ---
Subjective Remarks No new complaints. Objective Vitals Vital Signs Date Time Temp Pulse Resp B/P (MAP) Pulse Ox O2 Delivery O2 Flow Rate FiO2 06/27/17 15:54 113 06/27/17 12:36 98.3 101 17 103/67 (79) 99 06/27/17 08:21 98.2 108 18 108/74 (85) 99 06/27/17 04:00 98.0 106 18 124/71 (88) 98 06/27/17 00:00 98.4 105 18 110/63 (79) 99 06/26/17 20:00 98.6 109 20 121/82 (95) 100 06/27/17 06/27/17 06/28/17 15:00 23:00 07:00 Intake Total 360 ml Output Total 3000 ml Balance -2640 ml Intake Oral 360 ml Output Urine Total 3000 ml # Bowel Movements 0 Result Diagram: 06/26/17 0636 06/26/17 0636 Imaging Last Impressions Cyst Biopsy Asp-Paracentesis US 06/26/17 0600 Signed Impressions: Service Date/Time: Monday, June 26, 2017 08:47 - CONCLUSION: Uncomplicated ultrasound guided paracentesis. Victorino Blanco MD Foot X-Ray 06/25/17 0000 Signed Impressions: Service Date/Time: Sunday, June 25, 2017 12:02 - CONCLUSION: Chronic bony changes as described above. Jeremy Fry MD Renal Ultrasound 06/23/17 0000 Signed Impressions: Service Date/Time: Friday, June 23, 2017 17:11 - CONCLUSION: 1. Sonographic findings suggesting underlying medical renal disease. No obstruction. 2. Ascites. Bert Franklin Jr., MD Liver Ultrasound 06/23/17 0000 Signed Impressions: Service Date/Time: Friday, June 23, 2017 16:54 - CONCLUSION: Moderate ascites. Liver small and echogenic Pancreas not visualized Jose L Valdez MD FACR Objective Remarks GENERAL: This is a well-nourished, well-developed patient, in no apparent distress. CARDIOVASCULAR: Regular rate and rhythm without murmurs, gallops, or rubs. RESPIRATORY: Clear to auscultation. Breath sounds equal bilaterally. No wheezes , rales, or rhonchi. GASTROINTESTINAL: Abdomen soft, non-tender, nondistended. Normal active bowel sounds MUSCULOSKELETAL: Extremities without clubbing, cyanosis, or edema. NEURO: Alert & Oriented x4 to person, place, time, situation. Moves all ext x4 A/P Problem List: (1) Anasarca ICD Codes: R60.1 - Generalized edema Status: Acute Plan: - comgmt with Nephrology - Patient is 51 yo with no pmh who presents to his pcp in February with sudden abdomen and lower ext swelling. Pt says he was around 280pounds...lost weight to around 230 intentionally...then suddenly became swollen and gained weight back up to 280pounds. Over past 4-5 months has seen his pcp, cardiology, and urgent care. His diuretics have been titrated up, on arb, but cardiac echo and liver u/ s were pending. His outpt records indicate that his cr was around 3 in February and most recent around 2. He is not getting any better and presents here. - Pt was hypoglycemic on admission - anasarca - possibilities could include paul/nephrotic syndrome(spot prot/cr ratio not nephrotic range), liver cirrhosis, or new onset chf. - liver u/s 06/23 small echogenic liver no mass. ascites noted - renal u/s 06/23. no obstruction. medical renal dz - paracentesis (06/23) 5,500ml of fluid removed. - ascitic studies pending - SAAG score below 1, NOT c/w cirrhosis - Echocardiogram (06/26) --> EF 20-25% - Case d/w Dr. Higuera, Cardiology. He will consult - obtain Lexiscan - Pt may require Life Vest upon discharge. Await Cardiology input. - Pt has diuresed 15 Liters since admission - Hypoglycemia resolved - sinus tachycardia at rest with HR 100-110 - stop albumin & change lasix to PO, potassium - stop spironalactone - repeat BMP, observe potassium level - fluid restrictions - continue PT - DVT prophylaxis - supportive care (2) CKD (chronic kidney disease) stage 3, GFR 30-59 ml/min ICD Codes: N18.3 - Chronic kidney disease, stage 3 (moderate) Status: Chronic Plan: - observe - comgmt with Nephrology Angel Gallegos DO Jun 27, 2017 16:18
[2017-06-27] MEDS ORDERED: FUROSEMIDE 40 MG TAB PO SCH (18:00)
[2017-06-28] VITALS (7 sets, daily range): BP systolic 94–111; BP diastolic 56–72; PULSE 95–109; RESP 18–20; TEMP 98–98.6; O2SAT 97–100
--- NOTE | 2017-06-28 08:06 | PD.CONS ---
HPI Service cardiology Consult Requested By Reason for Consult cardiomyopathy Primary Care Physician Janneth Ruiz MD History of Present Illness This is a pleasant 51 yo AAM with CKD and CHF who presented to ED after a fall at home on 06/23/17; he was standing at his refrigerator, felt faint and "passed out". He had been followed by his PCP for progressive fluid retention and swelling to abdomen and legs x 4 months. He denies any chest pain, sob or palpitations. Echo has shown a decreased EF 20-25% with moderate MR and TR, PAP 49mmHg. He is s/p paracentesis and diuresing well since admission. He remains tachycardic HR ~100-110bpm. Currently resting comfortably Review of Systems Consitutional: DENIES: Fatigue, Fever, Chills, Weight loss Respiratory: DENIES: Cough, Snoring, Shortness of breath, Wheezing, Sputum production Cardiovascular: DENIES: Chest pain, Palpitations, Syncope Gastrointestinal: DENIES: Nausea, Vomiting, Change in bowel habits, Reflux, Bloody stools, Melena Past Family Social History Allergies: Coded Allergies: No Known Allergies (Unverified Allergy, Unknown, 06/23/17) Past Medical History leg/abdomen swelling since February hernia surgery as a child sinus tach Past Surgical History none Reported Medications Reported Meds & Active Scripts Active Reported Telmisartan 80 Mg Tab 80 Mg PO DAILY Aspirin 81 Mg Chew 81 Mg CHEW DAILY Aldactone (Spironolactone) 100 Mg Tab 100 Mg PO BIDPC Lasix (Furosemide) 80 Mg Tab 80 Mg PO BID Active Ordered Medications Current Medications Medications (Trade) Dose Ordered Sig/Everardo Route Start Time Stop Time Status Last Admin (Aspirin Chew) 81 mg DAILY CHEW 06/24/17 09:00 06/27/17 09:30 (Heparin Inj) 5,000 units Q12HR SQ 06/24/17 09:00 06/27/17 19:57 (KCl) 20 meq Q12HR PO 06/26/17 09:00 06/27/17 19:56 (Roxicodone) 5 mg Q4H PRN PO 06/25/17 12:15 06/27/17 23:34 (Lasix) 40 mg BID@ PO 06/27/17 18:00 06/27/17 17:41 (Cozaar) 50 mg DAILY PO 06/28/17 09:00 Family History nc Social History 4 beers 3x week. 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 HEAD: Atraumatic. Normocephalic. EYES: Pupils equal and round. No scleral icterus. ENT: No nasal bleeding or discharge. NECK: Trachea midline. No JVD. CARDIOVASCULAR: Regular rate and rhythm. systolic murmur at apex RESPIRATORY: No accessory muscle use. Clear to auscultation. Breath sounds equal bilaterally. GASTROINTESTINAL: Abdomen soft, non-tender, nondistended. Hepatic and splenic margins not palpable. MUSCULOSKELETAL: Extremities without clubbing, cyanosis. trace- 1+ lower leg edema bilateral NEUROLOGICAL: Awake and alert. No obvious cranial nerve deficits. Normal speech. PSYCHIATRIC: Appropriate mood and affect; insight and judgment normal. Laboratory Laboratory Tests Test 06/27/17 19:09 HIV (1&2) Ab and P24 Ag, 4th Gener NONREACTIVE Date/Time Source Procedure Growth Status 06/26/17 10:58 Fluid Peritoneal Fluid Gram Stain - Final Resulted 06/26/17 10:58 Fluid Peritoneal Fluid Body Fluid Culture - Preliminary NO GROWTH IN 24 HOURS. Resulted Result Diagram: 06/26/1763506/26/17635 Assessment and Plan Problem List: (1) Anasarca ICD Codes: R60.1 - Generalized edema Status: Acute (2) Ascites ICD Codes: R18.8 - Other ascites Assessment and Plan This is a pleasant 51 yo AAM with CKD and CHF who presented to ED after a fall at home on 06/23/17; he was standing at his refrigerator, felt faint and "passed out". He had been followed by his PCP for progressive fluid retention and swelling to abdomen and legs x 4 months. He denies any chest pain, sob or palpitations. Echo has shown a decreased EF 20-25% with moderate MR and TR, PAP 49mmHg. He is s/p paracentesis and diuresing well since admission. He remains tachycardic HR ~100-110bpm. cardiomyopathy- EF 20-25%, mod MR and TR with mild pHTN rule out ischemia with lexiscan today, keep npo CHF- add spironolactone 25mg, check renal function tomorrow sinus tachycardia- consider addition of carvedilol if BP will allow. Losartan to start today, monitor BP. Rebekah Munoz Jun 28, 2017 08:06
[2017-06-28 09:50] LABS: AUTOMATED NEUTROPHIL # 3.5 TH/MM3 (1.8-7.7); BASOPHIL # 0.1 TH/MM3 (0-0.2); BASOPHIL % 1.2 % (0.0-2.0); EOSINOPHIL # 0.4 TH/MM3 (0-0.4); EOSINOPHIL % 6.6 % (0.0-4.0); HEMATOCRIT 40.6 % (39.0-51.0); HEMOGLOBIN 13.3 GM/DL (13.0-17.0); LYMPH % 27.6 % (9.0-44.0); LYMPHOCYTE # 1.8 TH/MM3 (1.0-4.8); MEAN CELL VOLUME 95.4 FL (80.0-100.0); MEAN CORPUSCULAR HEMOGLOBIN 31.3 PG (27.0-34.0); MEAN CORPUSCULAR HGB CONC 32.8 % (32.0-36.0); MEAN PLATELET VOLUME 8.5 FL (7.0-11.0); MONO % 10.3 % (0.0-8.0); MONOCYTE # 0.7 TH/MM3 (0-0.9); NEUT % 54.3 % (16.0-70.0); PLATELET COUNT 295 TH/MM3 (150-450); RED BLOOD COUNT 4.25 MIL/MM3 (4.50-5.90); RED CELL DISTRIBUTION WIDTH 16.5 % (11.6-17.2); WHITE BLOOD COUNT 6.4 TH/MM3 (4.0-11.0)
[2017-06-28 10:17] LABS: ALBUMIN 3.3 GM/DL (3.4-5.0); AST (GOT) 21 U/L (15-37); BICARBONATE 33.9 MEQ/L (21.0-32.0); BLOOD UREA NITROGEN 23 MG/DL (7-18); CALCIUM 8.9 MG/DL (8.5-10.1); CHLORIDE 97 MEQ/L (98-107); CREATININE 2.15 MG/DL (0.60-1.30); GLOMERULAR FILTRATION RATE 39 ML/MIN (>89); GLUCOSE,RANDOM 80 MG/DL (74-106); MAGNESIUM 1.9 MG/DL (1.5-2.5); SODIUM (NA) 136 MEQ/L (136-145)
[2017-06-28 10:19] LABS: ALT (GPT) 18 U/L (12-78)
[2017-06-28 10:21] LABS: ALKALINE PHOSPHATASE 117 U/L (45-117); TOTAL BILIRUBIN ADULT 1.7 MG/DL (0.2-1.0); TOTAL PROTEIN 8.3 GM/DL (6.4-8.2)
[2017-06-28] MEDS ORDERED: DEXTROSE 50% IN WATER 50 ML SYRINGE ONE (10:48)
[2017-06-28] MEDS ORDERED: DEXT 5%-NACL 0.9% 1000 ML INJ 1,000 ML IV SCH (11:00)
[2017-06-28] MEDS ORDERED: REGADENOSON INJ 0.4 MG/5 ML SYR ONE (12:39)
--- NOTE | 2017-06-28 12:54 | HHI.PR ---
Subjective Remarks Patient currently NPO for planned for stress test today Patient reports pain right great toe both at rest and with weight bearing Objective Vitals Vital Signs Date Time Temp Pulse Resp B/P (MAP) Pulse Ox O2 Delivery O2 Flow Rate FiO2 06/28/17 11:22 98.6 107 20 102/61 (75) 100 06/28/17 08:21 98.4 98 18 107/69 (82) 98 06/28/17 04:00 98.3 98 18 111/69 (83) 97 06/28/17 00:00 98.5 106 18 110/72 (85) 98 06/27/17 23:41 104 06/27/17 20:07 101 06/27/17 20:00 98.1 101 18 108/63 (78) 98 06/27/17 16:21 98.0 105 18 112/74 (87) 100 06/27/17 15:54 113 Result Diagram: 06/28/17 0906 06/28/17 0906 Other Results Laboratory Tests Test 06/26/17 06:36 06/26/17 06:48 06/26/17 10:58 06/27/17 19:09 White Blood Count 7.1 TH/MM3 Red Blood Count 3.63 MIL/MM3 Hemoglobin 11.4 GM/DL Hematocrit 34.4 % Mean Corpuscular Volume 94.9 FL Mean Corpuscular Hemoglobin 31.6 PG Mean Corpuscular Hemoglobin Concent 33.3 % Red Cell Distribution Width 16.8 % Platelet Count 214 TH/MM3 Mean Platelet Volume 8.5 FL Neutrophils (%) (Auto) 63.0 % Lymphocytes (%) (Auto) 17.9 % Monocytes (%) (Auto) 11.6 % Eosinophils (%) (Auto) 6.5 % Basophils (%) (Auto) 1.0 % Neutrophils # (Auto) 4.5 TH/MM3 Lymphocytes # (Auto) 1.3 TH/MM3 Monocytes # (Auto) 0.8 TH/MM3 Eosinophils # (Auto) 0.5 TH/MM3 Basophils # (Auto) 0.1 TH/MM3 CBC Comment DIFF FINAL Differential Comment Prothrombin Time 12.7 SEC Prothromb Time International Ratio 1.3 RATIO Activated Partial Thromboplast Time 31.0 SEC Blood Urea Nitrogen 20 MG/DL Creatinine 1.87 MG/DL Random Glucose 72 MG/DL Total Protein 6.7 GM/DL Albumin 2.7 GM/DL Calcium Level 8.3 MG/DL Magnesium Level 1.6 MG/DL Alkaline Phosphatase 87 U/L Aspartate Amino Transf (AST/SGOT) 12 U/L Alanine Aminotransferase (ALT/SGPT) 14 U/L Total Bilirubin 2.0 MG/DL Direct Bilirubin 0.8 MG/DL Sodium Level 140 MEQ/L Potassium Level 4.4 MEQ/L Chloride Level 104 MEQ/L Carbon Dioxide Level 29.8 MEQ/L Anion Gap 6 MEQ/L Estimat Glomerular Filtration Rate 46 ML/MIN Indirect Bilirubin 1.2 MG/DL Urine Random Creatinine 29.4 MG/DL Urine Random Sodium 126 MEQ/L Peritoneal Fluid WBC 512 /MM3 Peritoneal Fluid RBC 174 /MM3 Peritoneal Fluid Neutrophils 7 % Peritoneal Fluid Lymphocytes 67 % Peritoneal Fluid Monocytes 5 % Peritoneal Fluid Eosinophils 1 % Peritoneal Fluid Basophils 1 % Peritoneal Fluid Histiocytes 16 % Peritoneal Fluid Mesothelial Cells 3 % Peritoneal Fluid Total Protein 4.4 GM/DL Peritoneal Fluid Albumin 2.0 G/DL HIV (1&2) Ab and P24 Ag, 4th Gener NONREACTIVE Test 06/28/17 09:06 White Blood Count 6.4 TH/MM3 Red Blood Count 4.25 MIL/MM3 Hemoglobin 13.3 GM/DL Hematocrit 40.6 % Mean Corpuscular Volume 95.4 FL Mean Corpuscular Hemoglobin 31.3 PG Mean Corpuscular Hemoglobin Concent 32.8 % Red Cell Distribution Width 16.5 % Platelet Count 295 TH/MM3 Mean Platelet Volume 8.5 FL Neutrophils (%) (Auto) 54.3 % Lymphocytes (%) (Auto) 27.6 % Monocytes (%) (Auto) 10.3 % Eosinophils (%) (Auto) 6.6 % Basophils (%) (Auto) 1.2 % Neutrophils # (Auto) 3.5 TH/MM3 Lymphocytes # (Auto) 1.8 TH/MM3 Monocytes # (Auto) 0.7 TH/MM3 Eosinophils # (Auto) 0.4 TH/MM3 Basophils # (Auto) 0.1 TH/MM3 CBC Comment DIFF FINAL Differential Comment Blood Urea Nitrogen 23 MG/DL Creatinine 2.15 MG/DL Random Glucose 80 MG/DL Total Protein 8.3 GM/DL Albumin 3.3 GM/DL Calcium Level 8.9 MG/DL Magnesium Level 1.9 MG/DL Alkaline Phosphatase 117 U/L Aspartate Amino Transf (AST/SGOT) 21 U/L Alanine Aminotransferase (ALT/SGPT) 18 U/L Total Bilirubin 1.7 MG/DL Sodium Level 136 MEQ/L Potassium Level 4.7 MEQ/L Chloride Level 97 MEQ/L Carbon Dioxide Level 33.9 MEQ/L Anion Gap 5 MEQ/L Estimat Glomerular Filtration Rate 39 ML/MIN Imaging Last Impressions Cyst Biopsy Asp-Paracentesis US 06/26/17 0600 Signed Impressions: Service Date/Time: Monday, June 26, 2017 08:47 - CONCLUSION: Uncomplicated ultrasound guided paracentesis. Victorino Blanco MD Foot X-Ray 06/25/17 0000 Signed Impressions: Service Date/Time: Sunday, June 25, 2017 12:02 - CONCLUSION: Chronic bony changes as described above. Jeremy Fry MD Renal Ultrasound 06/23/17 0000 Signed Impressions: Service Date/Time: Friday, June 23, 2017 17:11 - CONCLUSION: 1. Sonographic findings suggesting underlying medical renal disease. No obstruction. 2. Ascites. Bert Franklin Jr., MD Liver Ultrasound 06/23/17 0000 Signed Impressions: Service Date/Time: Friday, June 23, 2017 16:54 - CONCLUSION: Moderate ascites. Liver small and echogenic Pancreas not visualized Jose L Valdez MD FACR Objective Remarks GENERAL: This is a well-nourished, well-developed patient, in no apparent distress. CARDIOVASCULAR: Regular rate and rhythm without murmurs, gallops, or rubs. RESPIRATORY: Clear to auscultation. Breath sounds equal bilaterally. No wheezes , rales, or rhonchi. GASTROINTESTINAL: Abdomen soft, non-tender, nondistended. Normal active bowel sounds MUSCULOSKELETAL: Extremities without clubbing, cyanosis, or edema. right 1st toe mild erythema and edema NEURO: Alert & Oriented x4 to person, place, time, situation. Moves all ext x4 A/P Problem List: (1) Anasarca ICD Codes: R60.1 - Generalized edema Status: Acute Plan: - comgmt with Nephrology - Patient is 51 yo with no pmh who presents to his pcp in February with sudden abdomen and lower ext swelling. Pt says he was around 280pounds...lost weight to around 230 intentionally...then suddenly became swollen and gained weight back up to 280pounds. Over past 4-5 months has seen his pcp, cardiology, and urgent care. His diuretics have been titrated up, on arb, but cardiac echo and liver u/ s were pending. His outpt records indicate that his cr was around 3 in February and most recent around 2. He is not getting any better and presents here. - Pt was hypoglycemic on admission - anasarca - possibilities could include paul/nephrotic syndrome(spot prot/cr ratio not nephrotic range), liver cirrhosis, or new onset chf. - liver u/s 06/23 small echogenic liver no mass. ascites noted - renal u/s 06/23. no obstruction. medical renal dz - paracentesis (06/23) 5,500ml of fluid removed. - ascitic studies pending - SAAG score below 1, NOT c/w cirrhosis - Echocardiogram (06/26) --> EF 20-25% - Case d/w Dr. Higuera, Cardiology. He will consult - obtain Lexiscan - Pt may require Life Vest upon discharge. Await Cardiology input. - Pt has diuresed 15 Liters since admission - Hypoglycemia resolved - sinus tachycardia at rest with HR 100-110 - stop albumin & change lasix to PO, potassium 06/28 BUN 23, creatinine 2.15, GFR 39 - lasix to 40 mg PO daily - stop spironalactone - recheck BMP in AM - patient also on ARB - fluid restrictions - continue PT - DVT prophylaxis - supportive care (2) CKD (chronic kidney disease) stage 3, GFR 30-59 ml/min ICD Codes: N18.3 - Chronic kidney disease, stage 3 (moderate) Status: Chronic Plan: - observe - comgmt with Nephrology Assessment and Plan Patient examined. Assessment and plan formulated with Krystyna Venegas PA-C. I agree with the above. Agree with above Await results of Krystyna Mcgowan Jun 28, 2017 12:54 Angel Gallegos DO Jun 29, 2017 13:43
[2017-06-28] MEDS: ASPIRIN 81 MG CHEW TAB CHEW SCH (13:38)
[2017-06-28] MEDS: LOSARTAN 50 MG TAB PO SCH (13:38)
[2017-06-28] MEDS: SPIRONOLACTONE 25 MG TAB PO SCH (13:38)
[2017-06-28] MEDS: POTASSIUM CHLORIDE 20 MEQ CONTROLLED RELEASE TAB PO SCH ×2 (13:38→21:12)
[2017-06-28] MEDS: FUROSEMIDE 40 MG TAB PO SCH (13:39)
[2017-06-28] MEDS: HEPARIN SODIUM - SQ 10,000 UNITS/ML VIAL SQ SCH ×2 (13:39→21:12)
--- NOTE | 2017-06-28 14:00 | RADRPT ---
EXAM DATE/TIME: 06/28/2017 12:15 [facility] COMPARISON: No previous studies available for comparison. INDICATIONS : Syncope. Cardiomyopathy. Angina. Congestive heart failure. DOSE: 25.4 mCi Tc99m Myoview at stress. 8.6 mCi Tc99m Myoview at rest. 0.4 mg Lexiscan STRESS SYMPTOMS: Lightheaded. EJECTION FRACTION: 32% MEDICAL HISTORY : None SURGICAL HISTORY : None. ENCOUNTER: Initial ACUITY: 1 day PAIN SCALE: 2/10 LOCATION: Substernal chest TECHNIQUE: The patient underwent pharmacologic stress with infusion of prescribed dose. Continuous ECG tracing was monitored during stress. Gated SPECT imaging was performed after stress and conventional SPECT i maging was performed at rest. The examination was performed on a SPECT/CT scanner, both attenuation and non-corrected datasets were reviewed. FINDINGS: DISTRIBUTION: The maximum perfused segment at stress is in the lateral wall. PERFUSION STUDY: There is diminished perfusion along the inferior wall. This remains fixed on the rest images. The res t of the left ventricle demonstrates good perfusion. No definite ischemic myocardial changes are demo nstrated. GATED STUDY: There is akinesis of the septal wall. There is hypokinesis of the rest of the ventricle. CONCLUSION: 1. No definite ischemic myocardial changes are demonstrated. 2. There is a fixed defect along the inferior wall on the stress and rest images. 3. There is akinesis of the septal wall and hypokinesis of the rest of the ventricle with a reduced e jection fraction of 32%. RISK CATEGORY: Low Deangelo North MD on June 28, 2017 at 13:56 Board Certified Radiologist. This report was verified electronically.
--- NOTE | 2017-06-28 14:34 | RADRPT ---
EXAM DATE/TIME: 06/28/2017 14:02 [facility] COMPARISON: No previous studies available for comparison. INDICATIONS : Right foot pain, swelling. No known trauma MEDICAL HISTORY : Congestive heart failure. Hypertension chronic kidney disease. SURGICAL HISTORY : None. ENCOUNTER: Initial ACUITY: 4 - 6 days PAIN SCORE: 7/10 LOCATION: Right foot FINDINGS: Three view examination of the right foot demonstrates no soft tissue swelling, dislocation, or fractu re. The tarsal bones appear intact. There is some mild degenerative changes of the first metatarsal phalangeal joint.. The calcaneus is intact. Bony mineralization is normal. CONCLUSION: Mild primary degenerative changes of the first metatarsophalangeal joint. Deangelo North MD on June 28, 2017 at 14:31 Board Certified Radiologist. This report was verified electronically.
--- NOTE | 2017-06-28 14:40 | HHI.NPPN ---
Subjective History of Present Illness Patient is a 51-year-old male with history of edema, hypertension Objective Data Data Vital Signs Date Time Temp Pulse Resp B/P (MAP) Pulse Ox O2 Delivery O2 Flow Rate FiO2 06/28/17 11:22 98.6 107 20 102/61 (75) 100 06/28/17 08:21 98.4 98 18 107/69 (82) 98 06/28/17 04:00 98.3 98 18 111/69 (83) 97 06/28/17 00:00 98.5 106 18 110/72 (85) 98 06/27/17 23:41 104 06/27/17 20:07 101 06/27/17 20:00 98.1 101 18 108/63 (78) 98 06/27/17 16:21 98.0 105 18 112/74 (87) 100 06/27/17 15:54 113 -: 06/28/17 0906 06/28/17 0906 Physical Exam General Appearance: Well Developed, Well Nourished Neck Neck Exam: Neck Supple Pulmonary Resp Exam: Clear Bilaterally, Breath Sounds Equal Cardiology CV Exam: Tachycardia Gastrointestinal/Abdomen GI Exam: Soft, Non-Tender, Bowel Sounds Present Extremeties Extremities Exam: Trace Edema Assessment/Plan Problem List: (1) Acute renal failure ICD Codes: N17.9 - Acute kidney failure, unspecified Plan: Patient has underlying cardiomyopathy EF 25% dilated cardiomyopathy question of cirrhosis of the liver there is no evidence of nephrotic syndrome Mild proteinuria can be seen due to other medical issues Agree with diuretics Paracentesis was done 5.5 L removed Monitor intake and output Urine sodium is high likely due to diuretic cr higher Lasix now PO await Lexiscan discussed with family (2) Cirrhosis of liver ICD Codes: K74.60 - Unspecified cirrhosis of liver Plan: Liver ultrasound confirms small echogenic liver consistent with cirrhosis (3) Anasarca ICD Codes: R60.1 - Generalized edema Status: Acute Plan: Due to chf ? cirrhosis of the liver Andrzej Mojica MD Jun 28, 2017 14:40
[2017-06-29] VITALS (9 sets, daily range): BP systolic 100–112; BP diastolic 53–73; PULSE 95–104; RESP 16–20; TEMP 97.7–99.2; O2SAT 96–100
[2017-06-29 07:23] LABS: BICARBONATE 32.7 MEQ/L (21.0-32.0); CALCIUM 8.3 MG/DL (8.5-10.1); CREATININE 2.16 MG/DL (0.60-1.30)
--- NOTE | 2017-06-29 07:49 | PD.CARD.PN ---
Subjective Subjective Remarks denies chest pain or sob Objective Medications Current Medications Medications (Trade) Dose Ordered Sig/Everardo Route Start Time Stop Time Status Last Admin (Aspirin Chew) 81 mg DAILY CHEW 06/24/17 09:00 06/28/17 13:38 (Heparin Inj) 5,000 units Q12HR SQ 06/24/17 09:00 06/28/17 21:12 (KCl) 20 meq Q12HR PO 06/26/17 09:00 06/28/17 21:12 (Roxicodone) 5 mg Q4H PRN PO 06/25/17 12:15 06/28/17 21:12 (Cozaar) 50 mg DAILY PO 06/28/17 09:00 06/28/17 13:38 (Aldactone) 25 mg DAILY PO 06/28/17 09:00 06/28/17 13:38 (Lasix) 40 mg DAILY PO 06/29/17 09:00 06/28/17 13:39 (Coreg) 6.25 mg Q12HR PO 06/29/17 09:00 UNV Vital Signs / I&O Vital Signs Date Time Temp Pulse Resp B/P (MAP) Pulse Ox O2 Delivery O2 Flow Rate FiO2 06/29/17 04:29 98.4 100 18 112/58 (76) 99 06/29/17 04:01 98 06/29/17 01:17 97.7 97 20 103/60 (74) 96 06/29/17 00:37 97 06/28/17 20:00 98.0 95 18 107/63 (78) 98 06/28/17 16:16 98.0 104 20 94/56 (69) 100 06/28/17 12:00 109 06/28/17 11:22 98.6 107 20 102/61 (75) 100 06/28/17 08:21 98.4 98 18 107/69 (82) 98 I/O 06/28/17 06/28/17 06/28/17 06/29/17 06/29/17 06/29/17 07:00 15:00 23:00 07:00 15:00 23:00 Output Total 800 ml 1200 ml Balance -800 ml -1200 ml Output Urine Total 800 ml 1200 ml # Voids 4 # Bowel Movements 0 Physical Exam GENERAL: SKIN: Warm and dry. HEAD: Atraumatic. Normocephalic. EYES: Pupils equal and round. No scleral icterus. No injection or drainage. ENT: No nasal bleeding or discharge. Mucous membranes pink and moist. NECK: Trachea midline. No JVD. CARDIOVASCULAR: Regular rate and rhythm. no murmur RESPIRATORY: No accessory muscle use. Clear to auscultation. Breath sounds equal bilaterally. GASTROINTESTINAL: Abdomen soft, non-tender, nondistended. Hepatic and splenic margins not palpable. MUSCULOSKELETAL: Extremities without clubbing, cyanosis. lower extremity edema improving, 1+ bilateral NEUROLOGICAL: Awake and alert. No obvious cranial nerve deficits. Normal speech. PSYCHIATRIC: Appropriate mood and affect; insight and judgment normal. Laboratory Laboratory Tests Test 06/28/17 09:06 06/28/17 14:26 06/29/17 06:10 White Blood Count 6.4 TH/MM3 Red Blood Count 4.25 MIL/MM3 Hemoglobin 13.3 GM/DL Hematocrit 40.6 % Mean Corpuscular Volume 95.4 FL Mean Corpuscular Hemoglobin 31.3 PG Mean Corpuscular Hemoglobin Concent 32.8 % Red Cell Distribution Width 16.5 % Platelet Count 295 TH/MM3 Mean Platelet Volume 8.5 FL Neutrophils (%) (Auto) 54.3 % Lymphocytes (%) (Auto) 27.6 % Monocytes (%) (Auto) 10.3 % Eosinophils (%) (Auto) 6.6 % Basophils (%) (Auto) 1.2 % Neutrophils # (Auto) 3.5 TH/MM3 Lymphocytes # (Auto) 1.8 TH/MM3 Monocytes # (Auto) 0.7 TH/MM3 Eosinophils # (Auto) 0.4 TH/MM3 Basophils # (Auto) 0.1 TH/MM3 CBC Comment DIFF FINAL Differential Comment Blood Urea Nitrogen 23 MG/DL 26 MG/DL Creatinine 2.15 MG/DL 2.16 MG/DL Random Glucose 80 MG/DL 73 MG/DL Total Protein 8.3 GM/DL Albumin 3.3 GM/DL Calcium Level 8.9 MG/DL 8.3 MG/DL Magnesium Level 1.9 MG/DL Alkaline Phosphatase 117 U/L Aspartate Amino Transf (AST/SGOT) 21 U/L Alanine Aminotransferase (ALT/SGPT) 18 U/L Total Bilirubin 1.7 MG/DL Sodium Level 136 MEQ/L 136 MEQ/L Potassium Level 4.7 MEQ/L 4.8 MEQ/L Chloride Level 97 MEQ/L 98 MEQ/L Carbon Dioxide Level 33.9 MEQ/L 32.7 MEQ/L Anion Gap 5 MEQ/L 5 MEQ/L Estimat Glomerular Filtration Rate 39 ML/MIN 39 ML/MIN Uric Acid 9.2 MG/DL Imaging Last 48 hours Impressions Myocardial Perfusion Scan [facility] 06/28/17 0000 Signed Impressions: Service Date/Time: Wednesday, June 28, 2017 12:15 - CONCLUSION: 1. No definite ischemic myocardial changes are demonstrated. 2. There is a fixed defect along the inferior wall on the stress and rest images. 3. There is akinesis of the septal wall and hypokinesis of the rest of the ventricle with a reduced ejection fraction of 32%%. RISK CATEGORY: Low Deangelo North MD Foot X-Ray 06/28/17 0000 Signed Impressions: Service Date/Time: Wednesday, June 28, 2017 14:02 - CONCLUSION: Mild primary degenerative changes of the first metatarsophalangeal joint. Deangelo North MD Assessment and Plan Problem List: (1) Anasarca ICD Codes: R60.1 - Generalized edema Status: Acute (2) Ascites ICD Codes: R18.8 - Other ascites Assessment and Plan 51 yo AAM with CKD and CHF who presented to ED after a fall at home on 06/23/17; he was standing at his refrigerator, felt faint and "passed out". He had been followed by his PCP for progressive fluid retention and swelling to abdomen and legs x 4 months. He denies any chest pain, sob or palpitations. Echo has shown a decreased EF 20-25% with moderate MR and TR, PAP 49mmHg. He is s/p paracentesis and diuresing well since admission. He remains tachycardic HR ~90- 100bpm cardiomyopathy- EF 20-25%, nonischemic, mod MR and TR with mild pHTN lexiscan did not reveal ischemia, +fixed defect to inferior wall add low dose carvedilol, cont lisinopril. monitor BP needs LifeVest and follow up echo in 3 months to monitor EF, consider ICD CHF- diuresing well check CXR Rebekah Munoz Jun 29, 2017 07:49
[2017-06-29] MEDS ORDERED: DEFIB EXTERNAL (08:40)
[2017-06-29] MEDS: LOSARTAN 50 MG TAB PO SCH (09:00)
[2017-06-29] MEDS: SPIRONOLACTONE 25 MG TAB PO SCH (09:00)
[2017-06-29] MEDS ORDERED: CARVEDILOL 6.25 MG TAB PO SCH (09:00)
[2017-06-29] MEDS: HEPARIN SODIUM - SQ 10,000 UNITS/ML VIAL SQ SCH ×2 (09:00→21:33)
[2017-06-29] MEDS ORDERED: CARVEDILOL 3.125 MG TAB PO SCH (09:00)
--- NOTE | 2017-06-29 09:16 | RADRPT ---
EXAM DATE/TIME: 06/29/2017 08:52 [facility] COMPARISON: No previous studies available for comparison. INDICATIONS : Evaluate for congestive heart failure MEDICAL HISTORY : Congestive heart failure. Hypertension. Arthritis. Dyspnea. Abdominal pain.Anxiety. Chronic kidney di sease. SURGICAL HISTORY : Hernia repair. ENCOUNTER: Initial ACUITY: 1 day PAIN SCORE: 0/10 LOCATION: Bilateral chest FINDINGS: A single view of the chest demonstrates the lungs to be symmetrically aerated without evidence of mas s, infiltrate or effusion. The cardiomediastinal contours are unremarkable. Osseous structures are intact. CONCLUSION: Normal examination for a patient of this age. No acute intrathoracic disease. Deangelo North MD on June 29, 2017 at 9:15 Board Certified Radiologist. This report was verified electronically.
[2017-06-29] MEDS: POTASSIUM CHLORIDE 20 MEQ CONTROLLED RELEASE TAB PO SCH (09:35)
[2017-06-29] MEDS: ASPIRIN 81 MG CHEW TAB CHEW SCH (09:35)
[2017-06-29] MEDS: FUROSEMIDE 40 MG TAB PO SCH (09:37)
[2017-06-29] MEDS ORDERED: ALLO100T PO (13:16)
--- NOTE | 2017-06-29 13:42 | HHI.PR ---
Subjective Remarks No new complaints. Pt's pain at left great toe has resolved Objective Vitals Vital Signs Date Time Temp Pulse Resp B/P (MAP) Pulse Ox O2 Delivery O2 Flow Rate FiO2 06/29/17 12:00 98.9 104 19 105/69 (81) 100 06/29/17 08:00 98.4 102 17 105/73 (84) 100 06/29/17 04:29 98.4 100 18 112/58 (76) 99 06/29/17 04:01 98 06/29/17 01:17 97.7 97 20 103/60 (74) 96 06/29/17 00:37 97 06/28/17 20:00 98.0 95 18 107/63 (78) 98 06/28/17 16:16 98.0 104 20 94/56 (69) 100 Result Diagram: 06/28/17 0906 06/29/17 0610 Imaging Last Impressions Cyst Biopsy Asp-Paracentesis US 06/26/17 0600 Signed Impressions: Service Date/Time: Monday, June 26, 2017 08:47 - CONCLUSION: Uncomplicated ultrasound guided paracentesis. Victorino Blanco MD Foot X-Ray 06/25/17 0000 Signed Impressions: Service Date/Time: Sunday, June 25, 2017 12:02 - CONCLUSION: Chronic bony changes as described above. Jeremy Fry MD Renal Ultrasound 06/23/17 0000 Signed Impressions: Service Date/Time: Friday, June 23, 2017 17:11 - CONCLUSION: 1. Sonographic findings suggesting underlying medical renal disease. No obstruction. 2. Ascites. Bert Franklin Jr., MD Liver Ultrasound 06/23/17 0000 Signed Impressions: Service Date/Time: Friday, June 23, 2017 16:54 - CONCLUSION: Moderate ascites. Liver small and echogenic Pancreas not visualized Jose L Valdez MD FACR Objective Remarks GENERAL: This is a well-nourished, well-developed patient, in no apparent distress. CARDIOVASCULAR: Regular rate and rhythm without murmurs, gallops, or rubs. RESPIRATORY: Clear to auscultation. Breath sounds equal bilaterally. No wheezes , rales, or rhonchi. GASTROINTESTINAL: Abdomen soft, non-tender, nondistended. Normal active bowel sounds MUSCULOSKELETAL: Extremities without clubbing, cyanosis, or edema. right 1st toe mild erythema and edema NEURO: Alert & Oriented x4 to person, place, time, situation. Moves all ext x4 A/P Problem List: (1) Anasarca ICD Codes: R60.1 - Generalized edema Status: Acute Plan: - comgmt with Nephrology and Cardiology - Patient is 51 yo with no pmh who presents to his pcp in February with sudden abdomen and lower ext swelling. Pt says he was around 280pounds...lost weight to around 230 intentionally...then suddenly became swollen and gained weight back up to 280pounds. Over past 4-5 months has seen his pcp, cardiology, and urgent care. His diuretics have been titrated up, on arb, but cardiac echo and liver u/ s were pending. His outpt records indicate that his cr was around 3 in February and most recent around 2. He is not getting any better and presents here. - Pt was hypoglycemic on admission - anasarca upon admission - liver u/s 06/23 small echogenic liver no mass. ascites noted - renal u/s 06/23. no obstruction. medical renal dz - paracentesis (06/23) 5,500ml of fluid removed. - SAAG score below 1, NOT c/w cirrhosis - Echocardiogram (06/26) --> EF 20-25% - Lexiscan (06/28) --> NO reversible perfusion defect - arranging Life Vest for discharge - anticipate d/c to home 06/29 - Pt has diuresed 15 Liters since admission - IV lasix changed to PO - Hypoglycemia resolved - sinus tachycardia at rest with HR 100-110 06/28 BUN 23, creatinine 2.15, GFR 39 - case d/w Cardiology, Dr. Jang, (06/29) - stop spironalactone and coreg for now. Will try to resume coreg outpt as pt' s blood pressure allows - continu lasix and cozaar with parameters - fluid restrictions - continue PT - DVT prophylaxis - supportive care (2) CKD (chronic kidney disease) stage 3, GFR 30-59 ml/min ICD Codes: N18.3 - Chronic kidney disease, stage 3 (moderate) Status: Chronic Plan: - observe - comgmt with Nephrology Angel Gallegos DO Jun 29, 2017 13:42
[2017-06-29] MEDS: ALLOPURINOL 100 MG TAB PO SCH (14:00)
[2017-06-29] MEDS ORDERED: FUROSEMIDE 40 MG TAB PO ONE (14:00)
[2017-06-29] MEDS ORDERED: LOSARTAN 25 MG TAB PO ONE (14:00)
--- NOTE | 2017-06-29 14:27 | HHI.NPPN ---
Subjective History of Present Illness Patient is a 51-year-old male with history of edema, hypertension Objective Data Data Vital Signs Date Time Temp Pulse Resp B/P (MAP) Pulse Ox O2 Delivery O2 Flow Rate FiO2 06/29/17 12:00 98.9 104 19 105/69 (81) 100 06/29/17 08:00 98.4 102 17 105/73 (84) 100 06/29/17 04:29 98.4 100 18 112/58 (76) 99 06/29/17 04:01 98 06/29/17 01:17 97.7 97 20 103/60 (74) 96 06/29/17 00:37 97 06/28/17 20:00 98.0 95 18 107/63 (78) 98 06/28/17 16:16 98.0 104 20 94/56 (69) 100 -: 06/28/17 0906 06/29/17 0610 Physical Exam General Appearance: Well Developed, Well Nourished Neck Neck Exam: Neck Supple Pulmonary Resp Exam: Clear Bilaterally, Breath Sounds Equal Cardiology CV Exam: Tachycardia Gastrointestinal/Abdomen GI Exam: Soft, Non-Tender, Bowel Sounds Present Extremeties Extremities Exam: Trace Edema Assessment/Plan Problem List: (1) Acute renal failure ICD Codes: N17.9 - Acute kidney failure, unspecified Plan: Patient has underlying cardiomyopathy EF 25%to 32% on Lexiscan dilated cardiomyopathy question of cirrhosis of the liver there is no evidence of nephrotic syndrome Mild proteinuria can be seen due to other medical issues Agree with diuretics Paracentesis was done 5.5 L removed Monitor intake and output Urine sodium is high likely due to diuretic cr stable now switched to po Lasix Lasix now PO Lexiscan scan 32% discussed with family (2) Cirrhosis of liver ICD Codes: K74.60 - Unspecified cirrhosis of liver Plan: Liver ultrasound confirms small echogenic liver consistent with cirrhosis (3) Anasarca ICD Codes: R60.1 - Generalized edema Status: Acute Plan: Due to chf ? cirrhosis of the liver Andrzej Mojica MD Jun 29, 2017 14:27
[2017-06-30] VITALS (7 sets, daily range): BP systolic 106–127; BP diastolic 62–81; PULSE 68–108; RESP 16–18; TEMP 97.9–99.4; O2SAT 94–99
[2017-06-30] MEDS: ASPIRIN 81 MG CHEW TAB CHEW SCH (08:56)
[2017-06-30] MEDS: LOSARTAN 25 MG TAB PO SCH (08:56)
[2017-06-30] MEDS: ALLOPURINOL 100 MG TAB PO SCH (08:57)
[2017-06-30] MEDS: POTASSIUM CHLORIDE 20 MEQ CONTROLLED RELEASE TAB PO SCH (08:57)
[2017-06-30] MEDS: HEPARIN SODIUM - SQ 10,000 UNITS/ML VIAL SQ SCH ×2 (08:57→21:30)
[2017-06-30] MEDS: FUROSEMIDE 40 MG TAB PO SCH (08:59)
[2017-06-30] MEDS ORDERED: COZA25TA PO (09:17)
[2017-06-30] MEDS ORDERED: FURO40TA PO (09:17)
[2017-06-30] MEDS: CARVEDILOL 6.25 MG TAB PO SCH ×2 (10:00→21:28)
[2017-06-30 10:24] LABS: BICARBONATE 29.5 MEQ/L (21.0-32.0); CALCIUM 8.9 MG/DL (8.5-10.1); CREATININE 2.1 MG/DL (0.60-1.30)
--- NOTE | 2017-06-30 11:09 | HHI.DS ---
Discharge Summary Admission Date Jun 23, 2017 at 16:31 Discharge Date: Jun 30, 2017 Admitting Diagnosis CHF (1) Anasarca Diagnosis: Principal ICD Codes: R60.1 - Generalized edema Status: Acute (2) CKD (chronic kidney disease) stage 3, GFR 30-59 ml/min Diagnosis: Principal ICD Codes: N18.3 - Chronic kidney disease, stage 3 (moderate) Status: Chronic (3) NICM (nonischemic cardiomyopathy) Diagnosis: Principal ICD Codes: I42.8 - Other cardiomyopathies (4) Acute on chronic systolic (congestive) heart failure ICD Codes: I50.23 - Acute on chronic systolic (congestive) heart failure Consultants Dr. Mojica, Nephrology Dr. Higuera, Cardiology Procedures None Brief History Patient is 51 yo with no pmh who presents to his pcp in February with sudden abdomen and lower ext swelling. Pt says he was around 280pounds...lost weight to around 230 intentionally...then suddenly became swollen and gained weight back up to 280pounds. Over past 4-5 months has seen his pcp, cardiology, and urgent care. His diuretics have been titrated up, on arb, but cardiac echo and liver u/s were pending. His outpt records indicate that his cr was around 3 in February and most recent around 2. He is not getting any better and presents here. Pt says he was taking some otc supplements during his weight loss period. Denies any cp or palpitation. Denies any obvious infectious disease exposure but he is an [employer] at retirement. No needle sticks. CBC/BMP: 06/28/17 0906 06/30/17 0802 Significant Findings Laboratory Tests Test 06/27/17 19:09 06/28/17 09:06 06/28/17 14:26 06/29/17 06:10 Red Blood Count 4.25 MIL/MM3 (4.50-5.90) Monocytes (%) (Auto) 10.3 % (0.0-8.0) Eosinophils (%) (Auto) 6.6 % (0.0-4.0) Blood Urea Nitrogen 23 MG/DL (7-18) 26 MG/DL (7-18) Creatinine 2.15 MG/DL (0.60-1.30) 2.16 MG/DL (0.60-1.30) Total Protein 8.3 GM/DL (6.4-8.2) Albumin 3.3 GM/DL (3.4-5.0) Total Bilirubin 1.7 MG/DL (0.2-1.0) Chloride Level 97 MEQ/L (98-107) Carbon Dioxide Level 33.9 MEQ/L (21.0-32.0) 32.7 MEQ/L (21.0-32.0) Estimat Glomerular Filtration Rate 39 ML/MIN (>89) 39 ML/MIN (>89) Uric Acid 9.2 MG/DL (2.6-7.2) Random Glucose 73 MG/DL (74-106) Calcium Level 8.3 MG/DL (8.5-10.1) Test 06/30/17 08:02 Blood Urea Nitrogen 27 MG/DL (7-18) Creatinine 2.10 MG/DL (0.60-1.30) Random Glucose 73 MG/DL (74-106) Estimat Glomerular Filtration Rate 41 ML/MIN (>89) Imaging Last Impressions Chest X-Ray 06/29/17 0000 Signed Impressions: Service Date/Time: June 08:52 - CONCLUSION: Normal examination for a patient of this age. No acute intrathoracic disease. Deangelo North MD Myocardial Perfusion Scan Nuc Med 06/28/17 0000 Signed Impressions: Service Date/Time: Wednesday, June 28, 2017 12:15 - CONCLUSION: 1. No definite ischemic myocardial changes are demonstrated. 2. There is a fixed defect along the inferior wall on the stress and rest images. 3. There is akinesis of the septal wall and hypokinesis of the rest of the ventricle with a reduced ejection fraction of 32%%. RISK CATEGORY: Low Deangelo North MD Foot X-Ray 06/28/17 0000 Signed Impressions: Service Date/Time: Wednesday, June 28, 2017 14:02 - CONCLUSION: Mild primary degenerative changes of the first metatarsophalangeal joint. Deangelo North MD Cyst Biopsy Asp-Paracentesis US 06/26/17 0600 Signed Impressions: Service Date/Time: Monday, June 26, 2017 08:47 - CONCLUSION: Uncomplicated ultrasound guided paracentesis. Victorino Blanco MD Renal Ultrasound 06/23/17 0000 Signed Impressions: Service Date/Time: Friday, June 23, 2017 17:11 - CONCLUSION: 1. Sonographic findings suggesting underlying medical renal disease. No obstruction. 2. Ascites. Bert Franklin Jr., MD Liver Ultrasound 06/23/17 0000 Signed Impressions: Service Date/Time: Friday, June 23, 2017 16:54 - CONCLUSION: Moderate ascites. Liver small and echogenic Pancreas not visualized Jose L Valdez MD FACR PE at Discharge GENERAL: This is a well-nourished, well-developed patient, in no apparent distress. CARDIOVASCULAR: Regular rate and rhythm without murmurs, gallops, or rubs. RESPIRATORY: Clear to auscultation. Breath sounds equal bilaterally. No wheezes , rales, or rhonchi. GASTROINTESTINAL: Abdomen soft, non-tender, nondistended. Normal active bowel sounds MUSCULOSKELETAL: Extremities without clubbing, cyanosis, or edema. right 1st toe mild erythema and edema NEURO: Alert & Oriented x4 to person, place, time, situation. Moves all ext x4 Hospital Course Anasarca - comgmt with Nephrology and Cardiology - Patient is 51 yo with no pmh who presents to his pcp in February with sudden abdomen and lower ext swelling. Pt says he was around 280pounds...lost weight to around 230 intentionally...then suddenly became swollen and gained weight back up to 280pounds. Over past 4-5 months has seen his pcp, cardiology, and urgent care. His diuretics have been titrated up, on arb, but cardiac echo and liver u/ s were pending. His outpt records indicate that his cr was around 3 in February and most recent around 2. He is not getting any better and presents here. - Pt was hypoglycemic on admission - anasarca upon admission - liver u/s 06/23 small echogenic liver no mass. ascites noted - renal u/s 06/23. no obstruction. medical renal dz - paracentesis (06/23) 5,500ml of fluid removed. - SAAG score below 1, NOT c/w cirrhosis - Echocardiogram (06/26) --> EF 20-25% - Lexiscan (06/28) --> NO reversible perfusion defect - arranging Life Vest for discharge - anticipate d/c to home 06/29 - Pt has diuresed 15 Liters since admission - IV lasix changed to PO - Hypoglycemia resolved - sinus tachycardia at rest with HR 100-110 06/28 BUN 23, creatinine 2.15, GFR 39 - case d/w Cardiology, Dr. Jang, (06/29) CKD (chronic kidney disease) stage 3, GFR 30-59 ml/min - observe - comgmt with Nephrology R foot pain Gout - Mild primary degenerative changes - uric acid level 9.2 - start Allopurinol after acute flare has resolved Pt Condition on Discharge: Stable Discharge Disposition: Discharge Home Discharge Instructions DIET: Follow Instructions for: Heart Healthy Diet Activities you can perform: Regular-No Restrictions Follow up Referrals: Cardiology - [address] Higuera Neurology - [address] Mojica PCP Follow-up - [address] Ruiz New Medications: Allopurinol (Allopurinol) 100 Mg Tab 100 MG PO DAILY for Gout, #30 TAB 0 Refills Defibrillator Jacket (Defibrillator Jacket) 1 Ea Device EA EXTERNAL ONCE, #1 Energy = 150 Joules; VT Threshold = 150 BPM; VF Threshold = 200 BPM Use up to 90 days only Furosemide (Furosemide) 40 Mg Tab 40 MG PO DAILY for fluid retention, #30 TAB 0 Refills Losartan (Cozaar) 25 Mg Tab 25 MG PO DAILY for blood pressure and heart, #30 TAB 0 Refills Continued Medications: Aspirin (Aspirin) 81 Mg Chew 81 MG CHEW DAILY, TAB 0 Refills Discontinued Medications: Furosemide (Lasix) 80 Mg Tab 80 MG PO BID, #60 TAB 0 Refills Spironolactone (Aldactone) 100 Mg Tab 100 MG PO BIDPC, #60 TAB 0 Refills Telmisartan (Telmisartan) 80 Mg Tab 80 MG PO DAILY for Blood Pressure Management, #30 TAB 0 Refills Additional Information Patient examined. Assessment and plan formulated with Krystyna Venegas PA-C. I agree with the above. I initially wrote for discharge 06/30/17 Pt's discharge was delayed due issues regarding Life Vest Please see Dr. Garsia's Discharge Summary. Krystyna Venegas Jun 30, 2017 11:09 Angel Gallegos DO Jul 09, 2017 09:19
[2017-06-30] MEDS ORDERED: POTA20TA5 PO (14:06)
[2017-06-30] MEDS ORDERED: CARV6.25 PO (14:07)
--- NOTE | 2017-06-30 15:41 | HHI.DCPOC ---
Discharge Care Plan Diagnosis: (1) CHF (congestive heart failure) (2) Anasarca (3) Ascites Goals to Promote Your Health * To prevent worsening of your condition and complications * To maintain your health at the optimal level Directions to Meet Your Goals Take your medications as prescribed Follow your dietary instruction Follow activity as directed Keep your appointments as scheduled Take your immunizations and boosters as scheduled If your symptoms worsen call your PCP, if no PCP go to Urgent Care Center or Emergency Room Smoking is Dangerous to Your Health. Avoid second hand smoke Call the 24-hour hour crisis hotline for domestic abuse at Krystyna Venegas Jun 30, 2017 15:41 Angel Gallegos DO Jul 02, 2017 13:58
[2017-07-01 04:00] VITALS: BP 93/52; PULSE 88; RESP 16; TEMP 98.1; O2SAT 97
[2017-07-01 08:00] VITALS: PULSE 83
[2017-07-01 08:28] VITALS: BP 116/64; PULSE 88; RESP 20; TEMP 99.4; O2SAT 98
--- NOTE | 2017-07-01 09:22 | HHI.PR ---
Subjective Remarks Late note from 06/30/17 Patient medically stable and DC'd with lifevest. Lifevest not yet available Objective Vitals Vital Signs Date Time Temp Pulse Resp B/P (MAP) Pulse Ox O2 Delivery O2 Flow Rate FiO2 07/01/17 08:28 99.4 88 20 116/64 (81) 98 07/01/17 04:00 98.1 88 16 93/52 (66) 97 06/30/17 23:42 100 06/30/17 20:00 99.4 107 16 106/68 (81) 98 06/30/17 19:51 93 06/30/17 12:00 97.9 108 18 113/74 (87) 94 Result Diagram: 06/28/17 0906 06/30/17 0802 Imaging Last Impressions Cyst Biopsy Asp-Paracentesis US 06/26/17 0600 Signed Impressions: Service Date/Time: Monday, June 26, 2017 08:47 - CONCLUSION: Uncomplicated ultrasound guided paracentesis. Victorino Blanco MD Foot X-Ray 06/25/17 0000 Signed Impressions: Service Date/Time: Sunday, June 25, 2017 12:02 - CONCLUSION: Chronic bony changes as described above. Jeremy Fry MD Renal Ultrasound 06/23/17 0000 Signed Impressions: Service Date/Time: Friday, June 23, 2017 17:11 - CONCLUSION: 1. Sonographic findings suggesting underlying medical renal disease. No obstruction. 2. Ascites. Bert Franklin Jr., MD Liver Ultrasound 06/23/17 0000 Signed Impressions: Service Date/Time: Friday, June 23, 2017 16:54 - CONCLUSION: Moderate ascites. Liver small and echogenic Pancreas not visualized Jose L Valdez MD FACR Objective Remarks GENERAL: This is a well-nourished, well-developed patient, in no apparent distress. CARDIOVASCULAR: Regular rate and rhythm without murmurs, gallops, or rubs. RESPIRATORY: Clear to auscultation. Breath sounds equal bilaterally. No wheezes , rales, or rhonchi. GASTROINTESTINAL: Abdomen soft, non-tender, nondistended. Normal active bowel sounds MUSCULOSKELETAL: Extremities without clubbing, cyanosis, or edema. right 1st toe mild erythema and edema NEURO: Alert & Oriented x4 to person, place, time, situation. Moves all ext x4 Procedures None A/P Problem List: (1) Anasarca ICD Codes: R60.1 - Generalized edema Status: Acute Plan: Anasarca - comgmt with Nephrology and Cardiology - Patient is 51 yo with no pmh who presents to his pcp in February with sudden abdomen and lower ext swelling. Pt says he was around 280pounds...lost weight to around 230 intentionally...then suddenly became swollen and gained weight back up to 280pounds. Over past 4-5 months has seen his pcp, cardiology, and urgent care. His diuretics have been titrated up, on arb, but cardiac echo and liver u/ s were pending. His outpt records indicate that his cr was around 3 in February and most recent around 2. He is not getting any better and presents here. - Pt was hypoglycemic on admission - anasarca upon admission - liver u/s 06/23 small echogenic liver no mass. ascites noted - renal u/s 06/23. no obstruction. medical renal dz - paracentesis (06/23) 5,500ml of fluid removed. - SAAG score below 1, NOT c/w cirrhosis - Echocardiogram (06/26) --> EF 20-25% - Lexiscan (06/28) --> NO reversible perfusion defect - arranging Life Vest for discharge - anticipate d/c to home 06/29 - Pt has diuresed 15 Liters since admission - IV lasix changed to PO - Hypoglycemia resolved - sinus tachycardia at rest with HR 100-110 06/28 BUN 23, creatinine 2.15, GFR 39 - case d/w Cardiology, Dr. Jang, (06/29) - stop spironalactone and coreg for now. Will try to resume coreg outpt as pt' s blood pressure allows - continu lasix and cozaar with parameters - fluid restrictions - continue PT - DVT prophylaxis - supportive care CKD (chronic kidney disease) stage 3, GFR 30-59 ml/min - observe - comgmt with Nephrology R foot pain Gout - Mild primary degenerative changes - uric acid level 9.2 - start Allopurinol after acute flare has resolved (2) CKD (chronic kidney disease) stage 3, GFR 30-59 ml/min ICD Codes: N18.3 - Chronic kidney disease, stage 3 (moderate) Status: Chronic Plan: - observe - comgmt with Nephrology Assessment and Plan Patient examined. Assessment and plan formulated with Krystyna Venegas PA-C. I agree with the above. Krystyna Venegas Jul 01, 2017 09:22 Angel Gallegos DO Jul 02, 2017 13:56
[2017-07-01] MEDS: ASPIRIN 81 MG CHEW TAB CHEW SCH (09:42)
[2017-07-01] MEDS: ALLOPURINOL 100 MG TAB PO SCH (09:42)
[2017-07-01] MEDS: CARVEDILOL 6.25 MG TAB PO SCH ×2 (09:42→21:20)
[2017-07-01] MEDS: FUROSEMIDE 40 MG TAB PO SCH (09:43)
[2017-07-01] MEDS: POTASSIUM CHLORIDE 20 MEQ CONTROLLED RELEASE TAB PO SCH (09:43)
[2017-07-01] MEDS: HEPARIN SODIUM - SQ 10,000 UNITS/ML VIAL SQ SCH ×2 (09:43→21:22)
[2017-07-01] MEDS: LOSARTAN 25 MG TAB PO SCH (09:43)
--- NOTE | 2017-07-01 10:54 | HHI.NPPN ---
Subjective History of Present Illness Patient is a 51-year-old male with history of edema, hypertension Additional Remarks Patient is alert, no SOB, eating well. Objective Data Data Vital Signs Date Time Temp Pulse Resp B/P (MAP) Pulse Ox O2 Delivery O2 Flow Rate FiO2 07/01/17 08:28 99.4 88 20 116/64 (81) 98 07/01/17 08:00 83 07/01/17 04:00 98.1 88 16 93/52 (66) 97 06/30/17 23:42 100 06/30/17 20:00 99.4 107 16 106/68 (81) 98 06/30/17 19:51 93 06/30/17 12:00 97.9 108 18 113/74 (87) 94 -: 06/28/17 0906 06/30/17 0802 Physical Exam General Appearance: Well Developed, Well Nourished Neck Neck Exam: Neck Supple Pulmonary Resp Exam: Clear Bilaterally, Breath Sounds Equal Cardiology CV Exam: Tachycardia Gastrointestinal/Abdomen GI Exam: Soft, Non-Tender, Bowel Sounds Present Extremeties Extremities Exam: Trace Edema Assessment/Plan Problem List: (1) Acute renal failure ICD Codes: N17.9 - Acute kidney failure, unspecified Plan: Patient has underlying cardiomyopathy EF 25%to 32% on Lexiscan dilated cardiomyopathy question of cirrhosis of the liver there is no evidence of nephrotic syndrome Mild proteinuria can be seen due to other medical issues Agree with diuretics Paracentesis was done 5.5 L removed Monitor intake and output Urine sodium is high likely due to diuretic Lexiscan scan 32% Creatinine is stable, on Lasix. Edema and breathing better. (2) Cirrhosis of liver ICD Codes: K74.60 - Unspecified cirrhosis of liver Plan: Liver ultrasound confirms small echogenic liver consistent with cirrhosis (3) Anasarca ICD Codes: R60.1 - Generalized edema Status: Acute Plan: Due to chf ? cirrhosis of the liver Avinash German MD Jul 01, 2017 10:54
[2017-07-01 12:35] VITALS: BP 90/59; PULSE 85; RESP 20; TEMP 98.8; O2SAT 99
[2017-07-01 16:00] VITALS: BP 92/54; PULSE 89; RESP 20; TEMP 98.4; O2SAT 99
[2017-07-01 20:00] VITALS: BP 104/66; PULSE 94; RESP 18; TEMP 98.9; O2SAT 100
[2017-07-02] VITALS (8 sets, daily range): BP systolic 90–117; BP diastolic 54–75; PULSE 76–93; RESP 17–18; TEMP 97.7–98.4; O2SAT 99–100
[2017-07-02] MEDS: CARVEDILOL 6.25 MG TAB PO SCH ×2 (08:11→22:08)
[2017-07-02] MEDS: ASPIRIN 81 MG CHEW TAB CHEW SCH (08:11)
[2017-07-02] MEDS: FUROSEMIDE 40 MG TAB PO SCH (08:11)
[2017-07-02] MEDS: ALLOPURINOL 100 MG TAB PO SCH (08:11)
[2017-07-02] MEDS: LOSARTAN 25 MG TAB PO SCH (08:12)
[2017-07-02] MEDS: HEPARIN SODIUM - SQ 10,000 UNITS/ML VIAL SQ SCH ×2 (08:12→22:09)
[2017-07-02] MEDS: POTASSIUM CHLORIDE 20 MEQ CONTROLLED RELEASE TAB PO SCH (08:12)
--- NOTE | 2017-07-02 12:20 | HHI.PR ---
Subjective Remarks Patient offers no complaints awaiting Lifevest Objective Vitals Vital Signs Date Time Temp Pulse Resp B/P (MAP) Pulse Ox O2 Delivery O2 Flow Rate FiO2 07/02/17 12:00 97.7 76 18 95/61 (72) 100 07/02/17 08:58 16 07/02/17 08:08 83 07/02/17 08:00 98.2 82 18 117/75 (89) 100 07/02/17 04:46 98.3 91 17 90/54 (66) 99 07/02/17 00:08 98.4 92 17 111/61 (78) 99 07/01/17 20:00 98.9 94 18 104/66 (79) 100 07/01/17 16:00 98.4 89 20 92/54 (67) 99 07/01/17 12:35 98.8 85 20 90/59 (69) 99 Result Diagram: 06/28/17 0906 06/30/17 0802 Other Results Laboratory Tests Test 06/30/17 08:02 Blood Urea Nitrogen 27 MG/DL Creatinine 2.10 MG/DL Random Glucose 73 MG/DL Calcium Level 8.9 MG/DL Sodium Level 136 MEQ/L Potassium Level 4.4 MEQ/L Chloride Level 100 MEQ/L Carbon Dioxide Level 29.5 MEQ/L Anion Gap 7 MEQ/L Estimat Glomerular Filtration Rate 41 ML/MIN Imaging Last Impressions Cyst Biopsy Asp-Paracentesis US 06/26/17 0600 Signed Impressions: Service Date/Time: Monday, June 26, 2017 08:47 - CONCLUSION: Uncomplicated ultrasound guided paracentesis. Victorino Blanco MD Foot X-Ray 06/25/17 0000 Signed Impressions: Service Date/Time: Sunday, June 25, 2017 12:02 - CONCLUSION: Chronic bony changes as described above. Jeremy Fry MD Renal Ultrasound 06/23/17 0000 Signed Impressions: Service Date/Time: Friday, June 23, 2017 17:11 - CONCLUSION: 1. Sonographic findings suggesting underlying medical renal disease. No obstruction. 2. Ascites. Bert Franklin Jr., MD Liver Ultrasound 06/23/17 0000 Signed Impressions: Service Date/Time: Friday, June 23, 2017 16:54 - CONCLUSION: Moderate ascites. Liver small and echogenic Pancreas not visualized Jose L Valdez MD FACR Objective Remarks GENERAL: This is a well-nourished, well-developed patient, in no apparent distress. CARDIOVASCULAR: Regular rate and rhythm without murmurs, gallops, or rubs. RESPIRATORY: Clear to auscultation. Breath sounds equal bilaterally. No wheezes , rales, or rhonchi. GASTROINTESTINAL: Abdomen soft, non-tender, nondistended. Normal active bowel sounds MUSCULOSKELETAL: Extremities without clubbing, cyanosis, or edema. NEURO: Alert & Oriented x4 to person, place, time, situation. Moves all ext x4 Procedures None A/P Problem List: (1) Anasarca ICD Codes: R60.1 - Generalized edema Status: Acute Plan: Anasarca - resolved - comgmt with Nephrology and Cardiology - Patient is 51 yo with no pmh who presents to his pcp in February with sudden abdomen and lower ext swelling. Pt says he was around 280pounds...lost weight to around 230 intentionally...then suddenly became swollen and gained weight back up to 280pounds. Over past 4-5 months has seen his pcp, cardiology, and urgent care. His diuretics have been titrated up, on arb, but cardiac echo and liver u/ s were pending. His outpt records indicate that his cr was around 3 in February and most recent around 2. He is not getting any better and presents here. - Pt was hypoglycemic on admission - anasarca upon admission - liver u/s 06/23 small echogenic liver no mass. ascites noted - renal u/s 06/23. no obstruction. medical renal dz - paracentesis (06/23) 5,500ml of fluid removed. - SAAG score below 1, NOT c/w cirrhosis - Echocardiogram (06/26) --> EF 20-25% - Lexiscan (06/28) --> NO reversible perfusion defect - arranging Life Vest for discharge - anticipate d/c to home 06/29 - Pt has diuresed 15 Liters since admission - IV lasix changed to PO - Hypoglycemia resolved - sinus tachycardia at rest with HR 100-110 06/28 BUN 23, creatinine 2.15, GFR 39 - case d/w Cardiology, Dr. Jang, (06/29) - stop spironalactone and coreg for now. Will try to resume coreg outpt as pt' s blood pressure allows - continu lasix and cozaar with parameters - fluid restrictions - continue PT - DVT prophylaxis - supportive care Acute Systolic CHF Cardiomegaly EF 20-25%, nonischemic, mod MR and TR with mild pHTN lexiscan did not reveal ischemia, +fixed defect to inferior wall monitor BP needs LifeVest and follow up echo in 3 months to monitor EF, consider ICD diuresing well Continue Coreg, Losartan and Lasix CKD (chronic kidney disease) stage 3, GFR 30-59 ml/min - observe - comgmt with Nephrology R foot pain Gout - Mild primary degenerative changes - uric acid level 9.2 - start Allopurinol after acute flare has resolved Patient medically stable for DC awaiting Life vest (2) CKD (chronic kidney disease) stage 3, GFR 30-59 ml/min ICD Codes: N18.3 - Chronic kidney disease, stage 3 (moderate) Status: Chronic Plan: - observe - comgmt with Nephrology (3) CHF (congestive heart failure) ICD Codes: I50.9 - Heart failure, unspecified Assessment and Plan Patient examined. Assessment and plan formulated with Krystyna Venegas PA-C. I agree with the above. Pt with NO new complaints. Pt eager for discharge. Life Vest ordered 07/30/17 Awaiting Life Vest for safe discharge. Problem Qualifiers (1) CHF (congestive heart failure): Qualified Codes: I50.21 - Acute systolic (congestive) heart failure Krystyna Venegas Jul 02, 2017 12:20 Angel Gallegos DO Jul 02, 2017 13:58
--- NOTE | 2017-07-02 13:32 | HHI.NPPN ---
Subjective History of Present Illness Patient is a 51-year-old male with history of edema, hypertension Additional Remarks Patient is alert, no SOB, no complain. Objective Data Data Vital Signs Date Time Temp Pulse Resp B/P (MAP) Pulse Ox O2 Delivery O2 Flow Rate FiO2 07/02/17 12:00 97.7 76 18 95/61 (72) 100 07/02/17 08:58 16 07/02/17 08:08 83 07/02/17 08:00 98.2 82 18 117/75 (89) 100 07/02/17 04:46 98.3 91 17 90/54 (66) 99 07/02/17 00:08 98.4 92 17 111/61 (78) 99 07/01/17 20:00 98.9 94 18 104/66 (79) 100 07/01/17 16:00 98.4 89 20 92/54 (67) 99 -: 06/28/17 0906 06/30/17 0802 Physical Exam General Appearance: Well Developed, Well Nourished Neck Neck Exam: Neck Supple Pulmonary Resp Exam: Clear Bilaterally, Breath Sounds Equal Cardiology CV Exam: Tachycardia Gastrointestinal/Abdomen GI Exam: Soft, Non-Tender, Bowel Sounds Present Extremeties Extremities Exam: Trace Edema Assessment/Plan Problem List: (1) Acute renal failure ICD Codes: N17.9 - Acute kidney failure, unspecified Plan: Patient has underlying cardiomyopathy EF 25%to 32% on Lexiscan dilated cardiomyopathy question of cirrhosis of the liver there is no evidence of nephrotic syndrome Mild proteinuria can be seen due to other medical issues Agree with diuretics Paracentesis was done 5.5 L removed Monitor intake and output Urine sodium is high likely due to diuretic Lexiscan scan 32% Creatinine is stable, on Lasix. Edema and breathing better. No new BMP, Dr. Mojica will follow from AM. (2) Cirrhosis of liver ICD Codes: K74.60 - Unspecified cirrhosis of liver Plan: Liver ultrasound confirms small echogenic liver consistent with cirrhosis (3) Anasarca ICD Codes: R60.1 - Generalized edema Status: Acute Plan: Due to chf ? cirrhosis of the liver Avinash German MD Jul 02, 2017 13:32
[2017-07-03] VITALS (9 sets, daily range): BP systolic 94–120; BP diastolic 55–79; PULSE 81–103; RESP 17–19; TEMP 97.3–98.5; O2SAT 99–100
--- NOTE | 2017-07-03 09:10 | HHI.PR ---
Subjective Remarks Patient reports feeling well, no complaints looking forward to getting DC'd Objective Vitals Vital Signs Date Time Temp Pulse Resp B/P (MAP) Pulse Ox O2 Delivery O2 Flow Rate FiO2 07/03/17 04:57 95 07/03/17 04:30 98.5 101 17 120/74 (89) 100 07/03/17 02:33 102 07/03/17 00:02 98.3 103 17 117/70 (86) 100 07/02/17 23:00 93 07/02/17 16:26 81 07/02/17 12:04 81 07/02/17 12:00 97.7 76 18 95/61 (72) 100 Result Diagram: 06/30/17 0802 Imaging Last Impressions Cyst Biopsy Asp-Paracentesis US 06/26/17 0600 Signed Impressions: Service Date/Time: Monday, June 26, 2017 08:47 - CONCLUSION: Uncomplicated ultrasound guided paracentesis. Victorino Blanco MD Foot X-Ray 06/25/17 0000 Signed Impressions: Service Date/Time: Sunday, June 25, 2017 12:02 - CONCLUSION: Chronic bony changes as described above. Jeremy Fry MD Renal Ultrasound 06/23/17 0000 Signed Impressions: Service Date/Time: Friday, June 23, 2017 17:11 - CONCLUSION: 1. Sonographic findings suggesting underlying medical renal disease. No obstruction. 2. Ascites. Bert Franklin Jr., MD Liver Ultrasound 06/23/17 0000 Signed Impressions: Service Date/Time: Friday, June 23, 2017 16:54 - CONCLUSION: Moderate ascites. Liver small and echogenic Pancreas not visualized Jose L Valdez MD FACR Objective Remarks GENERAL: This is a well-nourished, well-developed patient, in no apparent distress. CARDIOVASCULAR: Regular rate and rhythm without murmurs, gallops, or rubs. RESPIRATORY: Clear to auscultation. Breath sounds equal bilaterally. No wheezes , rales, or rhonchi. GASTROINTESTINAL: Abdomen soft, non-tender, nondistended. Normal active bowel sounds MUSCULOSKELETAL: Extremities without clubbing, cyanosis, or edema. NEURO: Alert & Oriented x4 to person, place, time, situation. Moves all ext x4 Procedures None A/P Problem List: (1) Anasarca ICD Codes: R60.1 - Generalized edema Status: Acute Plan: Anasarca - resolved - comgmt with Nephrology and Cardiology - Patient is 51 yo with no pmh who presents to his pcp in February with sudden abdomen and lower ext swelling. Pt says he was around 280pounds...lost weight to around 230 intentionally...then suddenly became swollen and gained weight back up to 280pounds. Over past 4-5 months has seen his pcp, cardiology, and urgent care. His diuretics have been titrated up, on arb, but cardiac echo and liver u/ s were pending. His outpt records indicate that his cr was around 3 in February and most recent around 2. He is not getting any better and presents here. - Pt was hypoglycemic on admission - anasarca upon admission - liver u/s 06/23 small echogenic liver no mass. ascites noted - renal u/s 06/23. no obstruction. medical renal dz - paracentesis (06/23) 5,500ml of fluid removed. - SAAG score below 1, NOT c/w cirrhosis - Echocardiogram (06/26) --> EF 20-25% - Lexiscan (06/28) --> NO reversible perfusion defect - arranging Life Vest for discharge - anticipate d/c to home 06/29 - Pt has diuresed 15 Liters since admission - IV lasix changed to PO - Hypoglycemia resolved - sinus tachycardia at rest with HR 100-110 06/28 BUN 23, creatinine 2.15, GFR 39 - case d/w Cardiology, Dr. Jang, (06/29) - stop spironalactone and coreg for now. Will try to resume coreg outpt as pt' s blood pressure allows - continu lasix and cozaar with parameters - fluid restrictions - continue PT - DVT prophylaxis - supportive care Acute Systolic CHF Cardiomegaly EF 20-25%, nonischemic, mod MR and TR with mild pHTN lexiscan did not reveal ischemia, +fixed defect to inferior wall monitor BP needs LifeVest and follow up echo in 3 months to monitor EF, consider ICD diuresing well Continue Coreg, Losartan and Lasix CKD (chronic kidney disease) stage 3, GFR 30-59 ml/min - observe - comgmt with Nephrology R foot pain Gout - Mild primary degenerative changes - uric acid level 9.2 - start Allopurinol after acute flare has resolved Patient medically stable for DC awaiting Life vest (2) CKD (chronic kidney disease) stage 3, GFR 30-59 ml/min ICD Codes: N18.3 - Chronic kidney disease, stage 3 (moderate) Status: Chronic Plan: - observe - comgmt with Nephrology (3) CHF (congestive heart failure) ICD Codes: I50.9 - Heart failure, unspecified Assessment and Plan Patient examined. Assessment and plan formulated with Krystyna Venegas PA-C. I agree with the above. severe systolic chf with exacerbation. stabilized pt still awaiting d/c once life vest obtained. f/u cardiology and pcp. Problem Qualifiers (1) CHF (congestive heart failure): Qualified Codes: I50.21 - Acute systolic (congestive) heart failure Krystyna Venegas Jul 03, 2017 09:10 Danilo Garsia MD Jul 03, 2017 12:55
[2017-07-03] MEDS: FUROSEMIDE 40 MG TAB PO SCH (09:29)
[2017-07-03] MEDS: ASPIRIN 81 MG CHEW TAB CHEW SCH (09:29)
[2017-07-03] MEDS: ALLOPURINOL 100 MG TAB PO SCH (09:30)
[2017-07-03] MEDS: POTASSIUM CHLORIDE 20 MEQ CONTROLLED RELEASE TAB PO SCH (09:30)
[2017-07-03] MEDS: HEPARIN SODIUM - SQ 10,000 UNITS/ML VIAL SQ SCH ×2 (09:31→20:36)
[2017-07-03] MEDS: CARVEDILOL 6.25 MG TAB PO SCH ×2 (09:31→21:00)
[2017-07-03] MEDS: LOSARTAN 25 MG TAB PO SCH (09:31)
--- NOTE | 2017-07-03 15:29 | HHI.NPPN ---
Subjective History of Present Illness Patient is a 51-year-old male with history of edema, hypertension Additional Remarks Patient is alert, no SOB, no complain. Objective Data Data Vital Signs Date Time Temp Pulse Resp B/P (MAP) Pulse Ox O2 Delivery O2 Flow Rate FiO2 07/03/17 12:00 81 07/03/17 12:00 97.4 82 19 98/63 (75) 100 07/03/17 08:00 103 07/03/17 08:00 98.5 93 19 116/72 (87) 99 07/03/17 04:57 95 07/03/17 04:30 98.5 101 17 120/74 (89) 100 07/03/17 02:33 102 07/03/17 00:02 98.3 103 17 117/70 (86) 100 07/02/17 23:00 93 07/02/17 16:26 81 -: 06/30/17 0802 Physical Exam General Appearance: Well Developed, Well Nourished Neck Neck Exam: Neck Supple Pulmonary Resp Exam: Clear Bilaterally, Breath Sounds Equal Cardiology CV Exam: Tachycardia Gastrointestinal/Abdomen GI Exam: Soft, Non-Tender, Bowel Sounds Present Extremeties Extremities Exam: Trace Edema Assessment/Plan Problem List: (1) Acute renal failure ICD Codes: N17.9 - Acute kidney failure, unspecified Plan: Patient has underlying cardiomyopathy EF 25%to 32% on Lexiscan dilated cardiomyopathy question of cirrhosis of the liver there is no evidence of nephrotic syndrome Mild proteinuria can be seen due to other medical issues Agree with diuretics Paracentesis was done 5.5 L removed Monitor intake and output Urine sodium is high likely due to diuretic Lexiscan scan 32% Creatinine is stable, on Lasix. Edema and breathing better. last Cr 2.1 (2) Cirrhosis of liver ICD Codes: K74.60 - Unspecified cirrhosis of liver Plan: Liver ultrasound confirms small echogenic liver consistent with cirrhosis (3) Anasarca ICD Codes: R60.1 - Generalized edema Status: Acute Plan: Due to chf ? cirrhosis of the liver Andrzej Mojica MD Jul 03, 2017 15:29
[2017-07-04] VITALS (9 sets, daily range): BP systolic 99–120; BP diastolic 56–76; PULSE 86–100; RESP 17–18; TEMP 97.4–98.8; O2SAT 99–100
[2017-07-04] MEDS: LOSARTAN 25 MG TAB PO SCH (08:34)
[2017-07-04] MEDS: ALLOPURINOL 100 MG TAB PO SCH (08:35)
[2017-07-04] MEDS: POTASSIUM CHLORIDE 20 MEQ CONTROLLED RELEASE TAB PO SCH (08:35)
[2017-07-04] MEDS: FUROSEMIDE 40 MG TAB PO SCH (08:35)
[2017-07-04] MEDS: CARVEDILOL 6.25 MG TAB PO SCH ×2 (08:35→22:23)
[2017-07-04] MEDS: ASPIRIN 81 MG CHEW TAB CHEW SCH (08:36)
[2017-07-04] MEDS: HEPARIN SODIUM - SQ 10,000 UNITS/ML VIAL SQ SCH ×2 (08:36→22:26)
--- NOTE | 2017-07-04 09:48 | HHI.PR ---
Subjective Remarks Patient c/o gout pain left foot great toe awaiting Lifevest Objective Vitals Vital Signs Date Time Temp Pulse Resp B/P (MAP) Pulse Ox O2 Delivery O2 Flow Rate FiO2 07/04/17 05:49 98.4 95 17 115/66 (82) 100 07/04/17 00:41 98.3 99 17 115/76 (89) 100 07/03/17 20:36 98.5 89 17 94/55 (68) 100 07/03/17 20:08 93 07/03/17 16:00 97.3 93 19 120/79 (93) 100 07/03/17 12:00 81 07/03/17 12:00 97.4 82 19 98/63 (75) 100 Result Diagram: 06/30/17 0802 Imaging Last Impressions Cyst Biopsy Asp-Paracentesis US 06/26/17 0600 Signed Impressions: Service Date/Time: Monday, June 26, 2017 08:47 - CONCLUSION: Uncomplicated ultrasound guided paracentesis. Victorino Blanco MD Foot X-Ray 06/25/17 0000 Signed Impressions: Service Date/Time: Sunday, June 25, 2017 12:02 - CONCLUSION: Chronic bony changes as described above. Jeremy Fry MD Renal Ultrasound 06/23/17 0000 Signed Impressions: Service Date/Time: Friday, June 23, 2017 17:11 - CONCLUSION: 1. Sonographic findings suggesting underlying medical renal disease. No obstruction. 2. Ascites. Bert Franklin Jr., MD Liver Ultrasound 06/23/17 0000 Signed Impressions: Service Date/Time: Friday, June 23, 2017 16:54 - CONCLUSION: Moderate ascites. Liver small and echogenic Pancreas not visualized Jose L Valdez MD FACR Objective Remarks GENERAL: This is a well-nourished, well-developed patient, in no apparent distress. CARDIOVASCULAR: Regular rate and rhythm without murmurs, gallops, or rubs. RESPIRATORY: Clear to auscultation. Breath sounds equal bilaterally. No wheezes , rales, or rhonchi. GASTROINTESTINAL: Abdomen soft, non-tender, nondistended. Normal active bowel sounds MUSCULOSKELETAL: Extremities without clubbing, cyanosis, or edema. left foot 1st toe tender to palpation no redness or edema NEURO: Alert & Oriented x4 to person, place, time, situation. Moves all ext x4 Procedures None A/P Problem List: (1) Anasarca ICD Codes: R60.1 - Generalized edema Status: Acute Plan: Anasarca - resolved - comgmt with Nephrology and Cardiology - Patient is 51 yo with no pmh who presents to his pcp in February with sudden abdomen and lower ext swelling. Pt says he was around 280pounds...lost weight to around 230 intentionally...then suddenly became swollen and gained weight back up to 280pounds. Over past 4-5 months has seen his pcp, cardiology, and urgent care. His diuretics have been titrated up, on arb, but cardiac echo and liver u/ s were pending. His outpt records indicate that his cr was around 3 in February and most recent around 2. He is not getting any better and presents here. - Pt was hypoglycemic on admission - anasarca upon admission - liver u/s 06/23 small echogenic liver no mass. ascites noted - renal u/s 06/23. no obstruction. medical renal dz - paracentesis (06/23) 5,500ml of fluid removed. - SAAG score below 1, NOT c/w cirrhosis - Echocardiogram (06/26) --> EF 20-25% - Lexiscan (06/28) --> NO reversible perfusion defect - arranging Life Vest for discharge - anticipate d/c to home 06/29 - Pt has diuresed 15 Liters since admission - IV lasix changed to PO - Hypoglycemia resolved - sinus tachycardia at rest with HR 100-110 06/28 BUN 23, creatinine 2.15, GFR 39 - case d/w Cardiology, Dr. Jang, (06/29) - stop spironalactone and coreg for now. Will try to resume coreg outpt as pt' s blood pressure allows - continu lasix and cozaar with parameters - fluid restrictions - continue PT - DVT prophylaxis - supportive care Acute Systolic CHF Cardiomegaly EF 20-25%, nonischemic, mod MR and TR with mild pHTN lexiscan did not reveal ischemia, +fixed defect to inferior wall monitor BP needs LifeVest and follow up echo in 3 months to monitor EF, consider ICD diuresing well Continue Coreg, Losartan and Lasix CKD (chronic kidney disease) stage 3, GFR 30-59 ml/min - observe - comgmt with Nephrology R foot pain Gout - Mild primary degenerative changes - uric acid level 9.2 - Allopurinol - [place] as needed for pain, unable to give NSAIDs due to renal status - offered Chlorazine - patient does not want Chlorazine at this time due to diarrhea side effect Patient medically stable for DC awaiting Life vest (2) CKD (chronic kidney disease) stage 3, GFR 30-59 ml/min ICD Codes: N18.3 - Chronic kidney disease, stage 3 (moderate) Status: Chronic Plan: - observe - comgmt with Nephrology (3) CHF (congestive heart failure) ICD Codes: I50.9 - Heart failure, unspecified Assessment and Plan Patient examined. Assessment and plan formulated with Krystyna Venegas PA-C. I agree with the above. severe CM with decompensation. stable Pt has been waiting for life vest approval for many days dc orders written last week. still waiting. Problem Qualifiers (1) CHF (congestive heart failure): Qualified Codes: I50.21 - Acute systolic (congestive) heart failure Krystyna Venegas Jul 04, 2017 09:48 Danilo Garsia MD Jul 04, 2017 12:51
[2017-07-05] VITALS: BP 127/64; PULSE 101; RESP 18; TEMP 98.3; O2SAT 99
[2017-07-05 04:00] VITALS: BP 120/59; PULSE 91; RESP 18; TEMP 98; O2SAT 100
[2017-07-05 08:28] VITALS: BP 100/60; PULSE 90; RESP 16; TEMP 98.1; O2SAT 98
[2017-07-05] MEDS: LOSARTAN 25 MG TAB PO SCH (09:05)
[2017-07-05] MEDS: FUROSEMIDE 40 MG TAB PO SCH (09:05)
[2017-07-05] MEDS: POTASSIUM CHLORIDE 20 MEQ CONTROLLED RELEASE TAB PO SCH (09:05)
[2017-07-05] MEDS: CARVEDILOL 6.25 MG TAB PO SCH ×2 (09:06→22:55)
[2017-07-05] MEDS: ALLOPURINOL 100 MG TAB PO SCH (09:06)
[2017-07-05] MEDS: ASPIRIN 81 MG CHEW TAB CHEW SCH (09:06)
[2017-07-05] MEDS: HEPARIN SODIUM - SQ 10,000 UNITS/ML VIAL SQ SCH ×2 (09:07→22:55)
--- NOTE | 2017-07-05 10:30 | HHI.PR ---
Subjective Remarks very frustrated waiting on insurance to get his lifevest approved. Objective Vitals heart reg lung cta abd s/nt ext no edema Vital Signs Date Time Temp Pulse Resp B/P (MAP) Pulse Ox O2 Delivery O2 Flow Rate FiO2 07/05/17 08:28 98.1 90 16 100/60 (73) 98 07/05/17 04:00 98.0 91 18 120/59 (79) 100 07/05/17 00:00 98.3 101 18 127/64 (85) 99 07/04/17 23:00 100 07/04/17 21:30 100 07/04/17 20:00 98.3 100 18 116/73 (87) 100 07/04/17 17:01 88 07/04/17 16:00 97.4 89 18 99/56 (70) 100 07/04/17 12:00 86 07/04/17 12:00 98.0 88 18 104/66 (79) 100 07/05/17 07/05/17 07/06/17 15:00 23:00 07:00 # Voids 4 Imaging Last Impressions Cyst Biopsy Asp-Paracentesis US 06/26/17 0600 Signed Impressions: Service Date/Time: Monday, June 26, 2017 08:47 - CONCLUSION: Uncomplicated ultrasound guided paracentesis. Victorino Blanco MD Foot X-Ray 06/25/17 0000 Signed Impressions: Service Date/Time: Sunday, June 25, 2017 12:02 - CONCLUSION: Chronic bony changes as described above. Jeremy Fry MD Renal Ultrasound 06/23/17 0000 Signed Impressions: Service Date/Time: Friday, June 23, 2017 17:11 - CONCLUSION: 1. Sonographic findings suggesting underlying medical renal disease. No obstruction. 2. Ascites. Bert Franklin Jr., MD Liver Ultrasound 06/23/17 0000 Signed Impressions: Service Date/Time: Friday, June 23, 2017 16:54 - CONCLUSION: Moderate ascites. Liver small and echogenic Pancreas not visualized Jose L Valdez MD FACR Procedures None A/P Problem List: (1) Anasarca ICD Codes: R60.1 - Generalized edema Status: Acute Plan: Anasarca - resolved - comgmt with Nephrology and Cardiology - Patient is 51 yo with no pmh who presents to his pcp in February with sudden abdomen and lower ext swelling. Pt says he was around 280pounds...lost weight to around 230 intentionally...then suddenly became swollen and gained weight back up to 280pounds. Over past 4-5 months has seen his pcp, cardiology, and urgent care. His diuretics have been titrated up, on arb, but cardiac echo and liver u/ s were pending. His outpt records indicate that his cr was around 3 in February and most recent around 2. He is not getting any better and presents here. - Pt was hypoglycemic on admission - anasarca upon admission - liver u/s 06/23 small echogenic liver no mass. ascites noted - renal u/s 06/23. no obstruction. medical renal dz - paracentesis (06/23) 5,500ml of fluid removed. - SAAG score below 1, NOT c/w cirrhosis - Echocardiogram (06/26) --> EF 20-25% - Lexiscan (06/28) --> NO reversible perfusion defect - arranging Life Vest for discharge - anticipate d/c to home 06/29 - Pt has diuresed 15 Liters since admission - IV lasix changed to PO - Hypoglycemia resolved - sinus tachycardia at rest with HR 100-110 06/28 BUN 23, creatinine 2.15, GFR 39 - case d/w Cardiology, Dr. Jang, (06/29) - stop spironalactone and coreg for now. Will try to resume coreg outpt as pt' s blood pressure allows - continu lasix and cozaar with parameters - fluid restrictions - continue PT - DVT prophylaxis - supportive care THIS PATIENT HAS HAD D/C ORDERS SINCE 06/30. HAS BEEN AWAITING APPROVAL FOR LIFE VEST FROM HIS INSURANCE. HE IS FRUSTRATED. TO MY KNOWLEDGE THEY HAVE ALL CLINICAL INFO TO MAKE A DECISION. HE UNDERSTANDS LEAVING W/OUT IT WOULD BE AMA. Acute Systolic CHF Cardiomegaly EF 20-25%, nonischemic, mod MR and TR with mild pHTN lexiscan did not reveal ischemia, +fixed defect to inferior wall monitor BP needs LifeVest and follow up echo in 3 months to monitor EF, consider ICD diuresing well Continue Coreg, Losartan and Lasix CKD (chronic kidney disease) stage 3, GFR 30-59 ml/min - observe - comgmt with Nephrology R foot pain Gout - Mild primary degenerative changes - uric acid level 9.2 - Allopurinol - [place] as needed for pain, unable to give NSAIDs due to renal status - offered Chlorazine - patient does not want Chlorazine at this time due to diarrhea side effect Patient medically stable for DC awaiting Life vest (2) CKD (chronic kidney disease) stage 3, GFR 30-59 ml/min ICD Codes: N18.3 - Chronic kidney disease, stage 3 (moderate) Status: Chronic Plan: - observe - comgmt with Nephrology (3) CHF (congestive heart failure) ICD Codes: I50.9 - Heart failure, unspecified Problem Qualifiers (1) CHF (congestive heart failure): Qualified Codes: I50.21 - Acute systolic (congestive) heart failure Danilo Garsia MD Jul 05, 2017 10:30
[2017-07-05 12:50] VITALS: BP 97/56; PULSE 82; RESP 17; TEMP 97.9; O2SAT 98
[2017-07-05 16:49] VITALS: BP 107/66; PULSE 82; RESP 17; TEMP 97.8; O2SAT 100
[2017-07-05 20:00] VITALS: BP 119/72; PULSE 94; RESP 18; TEMP 97.9; O2SAT 100
[2017-07-06] VITALS: BP 100/57; PULSE 90; RESP 18; TEMP 97; O2SAT 94
[2017-07-06 04:00] VITALS: BP 106/60; PULSE 95; RESP 18; TEMP 98.9; O2SAT 99
[2017-07-06 08:34] VITALS: BP 115/71; PULSE 88; RESP 17; TEMP 98.1; O2SAT 100
[2017-07-06] MEDS: POTASSIUM CHLORIDE 20 MEQ CONTROLLED RELEASE TAB PO SCH (10:26)
[2017-07-06] MEDS: ASPIRIN 81 MG CHEW TAB CHEW SCH (10:27)
[2017-07-06] MEDS: CARVEDILOL 6.25 MG TAB PO SCH ×2 (10:27→21:40)
[2017-07-06] MEDS: LOSARTAN 25 MG TAB PO SCH (10:27)
[2017-07-06] MEDS: FUROSEMIDE 40 MG TAB PO SCH (10:27)
[2017-07-06] MEDS: ALLOPURINOL 100 MG TAB PO SCH (10:27)
[2017-07-06] MEDS: HEPARIN SODIUM - SQ 10,000 UNITS/ML VIAL SQ SCH ×2 (10:28→21:40)
--- NOTE | 2017-07-06 10:53 | HHI.PR ---
Subjective Remarks still waiting for lifevest Objective Vitals heart reg lng cta abd s/nt ext no edema Vital Signs Date Time Temp Pulse Resp B/P (MAP) Pulse Ox O2 Delivery O2 Flow Rate FiO2 07/06/17 08:34 98.1 88 17 115/71 (86) 100 07/06/17 04:00 98.9 95 18 106/60 (75) 99 07/06/17 00:00 97.0 90 18 100/57 (71) 94 07/05/17 20:00 97.9 94 18 119/72 (88) 100 07/05/17 16:49 97.8 82 17 107/66 (80) 100 07/05/17 12:50 97.9 82 17 97/56 (70) 98 Imaging Last Impressions Cyst Biopsy Asp-Paracentesis US 06/26/17 0600 Signed Impressions: Service Date/Time: Monday, June 26, 2017 08:47 - CONCLUSION: Uncomplicated ultrasound guided paracentesis. Victorino Blanco MD Foot X-Ray 06/25/17 0000 Signed Impressions: Service Date/Time: Sunday, June 25, 2017 12:02 - CONCLUSION: Chronic bony changes as described above. Jeremy Fry MD Renal Ultrasound 06/23/17 0000 Signed Impressions: Service Date/Time: Friday, June 23, 2017 17:11 - CONCLUSION: 1. Sonographic findings suggesting underlying medical renal disease. No obstruction. 2. Ascites. Bert Franklin Jr., MD Liver Ultrasound 06/23/17 0000 Signed Impressions: Service Date/Time: Friday, June 23, 2017 16:54 - CONCLUSION: Moderate ascites. Liver small and echogenic Pancreas not visualized Jose L Valdez MD FACR Procedures None A/P Problem List: (1) CHF (congestive heart failure) ICD Codes: I50.9 - Heart failure, unspecified Status: Acute Plan: systolic chf - comgmt with Nephrology and Cardiology - Patient is 51 yo with no pmh who presents to his pcp in February with sudden abdomen and lower ext swelling. Pt says he was around 280pounds...lost weight to around 230 intentionally...then suddenly became swollen and gained weight back up to 280pounds. Over past 4-5 months has seen his pcp, cardiology, and urgent care. His diuretics have been titrated up, on arb, but cardiac echo and liver u/ s were pending. His outpt records indicate that his cr was around 3 in February and most recent around 2. He is not getting any better and presents here. - Pt was hypoglycemic on admission - anasarca upon admission - liver u/s 06/23 small echogenic liver no mass. ascites noted - renal u/s 06/23. no obstruction. medical renal dz - paracentesis (06/23) 5,500ml of fluid removed. - SAAG score below 1, NOT c/w cirrhosis - Echocardiogram (06/26) --> EF 20-25% - Lexiscan (06/28) --> NO reversible perfusion defect - arranging Life Vest for discharge - anticipate d/c to home 06/29 - Pt has diuresed 15 Liters since admission - IV lasix changed to PO - Hypoglycemia resolved - sinus tachycardia at rest with HR 100-110 06/28 BUN 23, creatinine 2.15, GFR 39 - case d/w Cardiology, Dr. Jang, (06/29) - stop spironalactone and coreg for now. Will try to resume coreg outpt as pt' s blood pressure allows - continu lasix and cozaar with parameters - fluid restrictions - continue PT - DVT prophylaxis - supportive care THIS PATIENT HAS HAD D/C ORDERS SINCE 06/30. HAS BEEN AWAITING APPROVAL FOR LIFE VEST FROM HIS INSURANCE. HE IS FRUSTRATED. TO MY KNOWLEDGE THEY HAVE ALL CLINICAL INFO TO MAKE A DECISION. HE UNDERSTANDS LEAVING W/OUT IT WOULD BE AMA. Now the Insurance company as of yesterday denied him the lifevest. His electrical engineer mep to call peer to peer today. CKD (chronic kidney disease) stage 3, GFR 30-59 ml/min - observe - comgmt with Nephrology R foot pain Gout - Mild primary degenerative changes - uric acid level 9.2 - Allopurinol - [place] as needed for pain, unable to give NSAIDs due to renal status - (2) Anasarca ICD Codes: R60.1 - Generalized edema Status: Acute (3) CKD (chronic kidney disease) stage 3, GFR 30-59 ml/min ICD Codes: N18.3 - Chronic kidney disease, stage 3 (moderate) Status: Chronic Plan: - observe - comgmt with Nephrology Problem Qualifiers (1) CHF (congestive heart failure): Qualified Codes: I50.21 - Acute systolic (congestive) heart failure Danilo Garsia MD Jul 06, 2017 10:53
[2017-07-06 12:47] VITALS: BP 101/65; PULSE 92; RESP 18; TEMP 97.5; O2SAT 95
[2017-07-06 16:15] VITALS: BP 114/69; PULSE 87; RESP 18; TEMP 98.3; O2SAT 100
[2017-07-06 20:00] VITALS: BP 133/80; PULSE 100; RESP 20; TEMP 98.2; O2SAT 100
[2017-07-07] VITALS: BP 125/73; PULSE 98; RESP 18; TEMP 98.3; O2SAT 100
[2017-07-07 04:00] VITALS: BP 105/62; PULSE 97; RESP 18; TEMP 97.5; O2SAT 100
[2017-07-07 08:00] VITALS: BP 124/73; PULSE 96; RESP 18; TEMP 97.9; O2SAT 100
[2017-07-07] MEDS: LOSARTAN 25 MG TAB PO SCH (08:54)
[2017-07-07] MEDS: ASPIRIN 81 MG CHEW TAB CHEW SCH (08:54)
[2017-07-07] MEDS: ALLOPURINOL 100 MG TAB PO SCH (08:54)
[2017-07-07] MEDS: FUROSEMIDE 40 MG TAB PO SCH (08:54)
[2017-07-07] MEDS: POTASSIUM CHLORIDE 20 MEQ CONTROLLED RELEASE TAB PO SCH (08:55)
[2017-07-07] MEDS: CARVEDILOL 6.25 MG TAB PO SCH (08:55)
[2017-07-07] MEDS: HEPARIN SODIUM - SQ 10,000 UNITS/ML VIAL SQ SCH (08:57)
--- NOTE | 2017-07-07 11:27 | HHI.DS ---
Discharge Summary Admission Date Jun 23, 2017 at 16:31 Discharge Date: Jul 07, 2017 Admitting Diagnosis CHF (1) CHF (congestive heart failure) Diagnosis: Principal ICD Codes: I50.9 - Heart failure, unspecified Status: Acute (2) Anasarca Diagnosis: Principal ICD Codes: R60.1 - Generalized edema Status: Acute (3) CKD (chronic kidney disease) stage 3, GFR 30-59 ml/min Diagnosis: Principal ICD Codes: N18.3 - Chronic kidney disease, stage 3 (moderate) Status: Chronic Procedures None Brief History Patient is 51 yo with no pmh who presents to his pcp in February with sudden abdomen and lower ext swelling. Pt says he was around 280pounds...lost weight to around 230 intentionally...then suddenly became swollen and gained weight back up to 280pounds. Over past 4-5 months has seen his pcp, cardiology, and urgent care. His diuretics have been titrated up, on arb, but cardiac echo and liver u/s were pending. His outpt records indicate that his cr was around 3 in February and most recent around 2. He is not getting any better and presents here. Pt says he was taking some otc supplements during his weight loss period. Denies any cp or palpitation. 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 No needle sticks. Hospital Course (1) CHF (congestive heart failure) systolic chf - comgmt with Nephrology and Cardiology - Patient is 51 yo with no pmh who presents to his pcp in February with sudden abdomen and lower ext swelling. Pt says he was around 280pounds...lost weight to around 230 intentionally...then suddenly became swollen and gained weight back up to 280pounds. Over past 4-5 months has seen his pcp, cardiology, and urgent care. His diuretics have been titrated up, on arb, but cardiac echo and liver u/ s were pending. His outpt records indicate that his cr was around 3 in February and most recent around 2. He is not getting any better and presents here. - Pt was hypoglycemic on admission - anasarca upon admission - liver u/s 06/23 small echogenic liver no mass. ascites noted - renal u/s 06/23. no obstruction. medical renal dz - paracentesis (06/23) 5,500ml of fluid removed. - SAAG score below 1, NOT c/w cirrhosis - Echocardiogram (06/26) --> EF 20-25% - Lexiscan (06/28) --> NO reversible perfusion defect - arranging Life Vest for discharge - anticipated d/c to home 06/29 - Pt had diuresed 15 Liters since admission - sinus tachycardia at rest with HR 100-110 06/28 BUN 23, creatinine 2.15, GFR 39 - THIS PATIENT HAS HAD D/C ORDERS SINCE 06/30. HAS BEEN AWAITING APPROVAL FOR LIFE VEST FROM HIS INSURANCE. HE IS FRUSTRATED. TO MY KNOWLEDGE THEY HAVE ALL CLINICAL INFO TO MAKE A DECISION. Insurance company then finally denied this patient a lifevest. It is highly recommended by his boat washer due to increased risk for life threatening arrhythmia and sudden . They were not cooperative with peer to peer call. They were not responsive to an appt they made with our boat washer from 1-3pm on 07/06. Pt at this point is frustrated and just wants to go home. He and his mother may seek legal action against the insurance company. CKD (chronic kidney disease) stage 3, GFR 30-59 ml/min - observe - comgmt with Nephrology R foot pain Gout - Mild primary degenerative changes - uric acid level 9.2 - Allopurinol - Denbo as needed for pain, unable to give NSAIDs due to renal status Pt Condition on Discharge: Stable Discharge Disposition: Discharge Home Discharge Instructions DIET: Follow Instructions for: Heart Healthy Diet Activities you can perform: Regular-No Restrictions Follow up Referrals: Cardiology - [address] Jang Nephrology - [address] Mojica PCP Follow-up - [address] Ruiz New Medications: Allopurinol (Allopurinol) 100 Mg Tab 100 MG PO DAILY for Gout, #30 TAB 0 Refills Defibrillator Jacket (Defibrillator Jacket) 1 Ea Device EA EXTERNAL ONCE, #1 Energy = 150 Joules; VT Threshold = 150 BPM; VF Threshold = 200 BPM Use up to 90 days only Carvedilol (Coreg) 6.25 Mg Tab 6.25 MG PO Q12HR for heart, #60 TAB 0 Refills Furosemide (Furosemide) 40 Mg Tab 40 MG PO DAILY for fluid retention, #30 TAB 0 Refills Losartan (Cozaar) 25 Mg Tab 25 MG PO DAILY for blood pressure and heart, #30 TAB 0 Refills Potassium Chloride Microencaps (Potassium Chloride Microencaps) 20 Meq Tab 20 MEQ PO DAILY for potassium supplement, #30 TAB 0 Refills Continued Medications: Aspirin (Aspirin) 81 Mg Chew 81 MG CHEW DAILY, TAB 0 Refills Discontinued Medications: Furosemide (Lasix) 80 Mg Tab 80 MG PO BID, #60 TAB 0 Refills Spironolactone (Aldactone) 100 Mg Tab 100 MG PO BIDPC, #60 TAB 0 Refills Telmisartan (Telmisartan) 80 Mg Tab 80 MG PO DAILY for Blood Pressure Management, #30 TAB 0 Refills Danilo Garsia MD Jul 07, 2017 11:26
[2017-07-07 12:00] VITALS: BP 117/68; PULSE 89; RESP 18; TEMP 98.4; O2SAT 98
== END 2017-07-07 14:10 | disposition home or self-care (01) | DRG 291 ==
LOC: NEPE 12:29 → NEDH 15:58 → OBSVTOIN 16:31 → N05B 19:28
PROVIDERS: ADMIT Hospitalist; ATTEND Hospitalist
PROC: 0W9G3ZZ Drainage of Peritoneal Cavity, Percutaneous Approach (ICD-10-PCS; principal; 2017-06-26)
DX: I13.0 Hypertensive heart and chronic kidney disease with heart failure and stage 1 through stage 4 chronic kidney disease, or unspecified chronic kidney disease (principal); I50.23 Acute on chronic systolic (congestive) heart failure; R18.8 Other ascites; N17.9 Acute kidney failure, unspecified; S09.90XA Unspecified injury of head, initial encounter; N18.3 Chronic kidney disease, stage 3 (moderate); K74.60 Unspecified cirrhosis of liver; I42.0 Dilated cardiomyopathy; R60.1 Generalized edema; E16.2 Hypoglycemia, unspecified; R80.9 Proteinuria, unspecified; R00.0 Tachycardia, unspecified; F12.90 Cannabis use, unspecified, uncomplicated; M10.9 Gout, unspecified; M79.671 Pain in right foot; W18.39XA Other fall on same level, initial encounter; Y92.000 Kitchen of unspecified non-institutional (private) residence as the place of occurrence of the external cause; Z87.891 Personal history of nicotine dependence
CPT/HCPCS: 49083; 71045; 73630; 76705; 76775; 78452; 80048; 80053; 80074; 80076; 81001; 82042; 82570; 82948; 83735; 83880; 84132; 84156; 84157; 84300; 84443; 84550; 85025; 85610; 85730; 86703; 87070; 87205; 88112; 88305; 89051; 93005; 93017; 93306; 99285; A9502; C1729; J1644; J1940; J2785; J7042; P9047